=== PATIENT | female | born 1955 | race Two or more races ===

== ENCOUNTER 2020-06-18 08:37 | Outpatient (REF) | payer MEDICARE, MEDICAID, SELFPAY ==
[2020-06-18 09:48] LABS: MANUAL DIFF FLAG NO
[2020-06-18 09:49] LABS: Basophils Absolute Auto 0.1 X10*3/uL (0.0-0.2); Basophils Percent Auto 0.8 % (0-2); Eosinophils Absolute Auto 0.1 X10*3/uL (0.0-0.4); Hematocrit 36.2 % (37-47); Hemoglobin 12.4 g/dl (12.0-16.0); Imm Gran Abs Auto 0.02 X10*3/uL (0.00-0.03); Imm Gran Pct Auto 0.3 % (0.0-0.4); Lymphocytes Percent Auto 28.5 % (20-40); Mean Corpuscular HGB Conc 34.3 g/dl (31.0-35.0); Mean Corpuscular Hemoglobin 30.8 pg (27.0-33.0); Mean Corpuscular Volume 89.8 fL (80-98); Mean Platelet Volume 11.1 fL (9.4-12.3); Monocytes Absolute Auto 0.5 X10*3/uL (0.1-1.2); Monocytes Percent Auto 6.9 % (2-11); Neutrophils Absolute Auto 4.4 X10*3/uL (2.0-8.3); Neutrophils Percent Auto 62.5 % (45-73); Platelet Count 238 X10*3/uL (160-400); Red Blood Count 4.03 X10*6/uL (4.20-5.50); Red Cell Distribution Width 11.7 % (11.0-16.0); White Blood Count 7.1 X10*3/uL (4.8-10.8)
[2020-06-18 10:18] LABS: Alanine Aminotransferase 7 U/L (0-31); Albumin Level 4.3 g/dL (3.5-5.0); Alkaline Phosphatase 66 U/L (39-117); Anion Gap 11 (12-20); Aspartate Amino Transferase 14 U/L (5-31); Bilirubin Total 0.5 mg/dL (0.0-1.0); Blood Urea Nitrogen 15 mg/dL (9-16); Calcium 9.4 mg/dL (8.4-10.2); Carbon Dioxide 28 mmol/L (22-29); Chloride 104 mmol/L (96-108); Cholesterol 197 mg/dL; Estimated Glomerular Filt Rate > 60; Glucose Fasting 120 mg/dL (60-99); HDL Cholesterol 45 mg/dL; LDL Cholesterol Calculated 138 mg/dl; Sodium 139 mmol/L (135-145); Total Protein 7.2 g/dL (6.5-8.0); Triglycerides 72 mg/dL
[2020-06-18 10:40] LABS: Vitamin D 25-OH Total 29.2 ng/mL (>30)
== END 2020-06-18 08:38 | disposition home or self-care (01) ==
LOC: HO.LAB 08:37
PROVIDERS: Visit Provider Internal Medicine
DX: I10 Essential (primary) hypertension (principal); E78.00 Pure hypercholesterolemia, unspecified; G43.909 Migraine, unspecified, not intractable, without status migrainosus; E55.9 Vitamin D deficiency, unspecified
CPT/HCPCS: 36415; 80053; 80061; 82306; 85025

== ENCOUNTER 2021-05-17 09:27 | Outpatient (REF) | payer MEDICARE, MEDICAID, SELFPAY ==
[2021-05-17 10:02] LABS: MANUAL DIFF FLAG NO
[2021-05-17 10:12] LABS: Basophils Percent Auto 0.7 % (0-2); Eosinophils Absolute Auto 0.1 X10*3/uL (0.0-0.4); Eosinophils Percent Auto 1.8 % (0-4); Hematocrit 35.1 % (37-47); Hemoglobin 11.5 g/dl (12.0-16.0); Imm Gran Abs Auto 0.01 X10*3/uL (0.00-0.03); Imm Gran Pct Auto 0.2 % (0.0-0.4); Lymphocytes Absolute Auto 1.9 X10*3/uL (1.2-4.9); Lymphocytes Percent Auto 31.7 % (20-40); Mean Corpuscular HGB Conc 32.8 g/dl (31.0-35.0); Mean Corpuscular Hemoglobin 30.1 pg (27.0-33.0); Mean Corpuscular Volume 91.9 fL (80-98); Mean Platelet Volume 11.2 fL (9.4-12.3); Monocytes Absolute Auto 0.5 X10*3/uL (0.1-1.2); Monocytes Percent Auto 8.2 % (2-11); Neutrophils Absolute Auto 3.4 X10*3/uL (2.0-8.3); Neutrophils Percent Auto 57.4 % (45-73); Platelet Count 221 X10*3/uL (160-400); Red Blood Count 3.82 X10*6/uL (4.20-5.50); Red Cell Distribution Width 11.9 % (11.0-16.0)
[2021-05-17 10:32] LABS: Alanine Aminotransferase 9 U/L (0-31); Albumin Level 4.2 g/dL (3.5-5.0); Alkaline Phosphatase 60 U/L (39-117); Anion Gap 9 (12-20); Aspartate Amino Transferase 13 U/L (5-31); Bilirubin Total 0.6 mg/dL (0.0-1.0); Blood Urea Nitrogen 14 mg/dL (9-16); Calcium 9.6 mg/dL (8.4-10.2); Carbon Dioxide 29 mmol/L (22-29); Chloride 108 mmol/L (96-108); Cholesterol 180 mg/dL; Estimated Glomerular Filt Rate > 60; Glucose Fasting 105 mg/dL (60-99); HDL Cholesterol 42 mg/dL; LDL Cholesterol Calculated 126 mg/dl; Potassium 4.4 mmol/L (3.3-5.1); Sodium 142 mmol/L (135-145); Total Protein 6.8 g/dL (6.5-8.0); Triglycerides 60 mg/dL
[2021-05-17 10:51] LABS: TSH reflex Free T4 0.42 uIU/mL (0.32-4.0)
[2021-05-17 10:56] LABS: Folate 14.2 ng/mL (> or = 4.0); Vitamin B12 178 pg/mL (200-900)
[2021-05-26 16:50] LABS: Vitamin D 25-OH, D2 5 ng/mL; Vitamin D 25-OH, D3 14 ng/mL; Vitamin D 25-OH, Total 19 ng/mL (30-100)
== END 2021-05-17 09:28 | disposition home or self-care (01) ==
LOC: HO.LAB 09:27
PROVIDERS: PCP Internal Medicine; Visit Provider Internal Medicine
DX: R53.83 Other fatigue (principal); E55.9 Vitamin D deficiency, unspecified; D64.9 Anemia, unspecified; F41.9 Anxiety disorder, unspecified; E78.5 Hyperlipidemia, unspecified; I10 Essential (primary) hypertension
CPT/HCPCS: 36415; 80053; 80061; 82306; 82607; 82746; 84443; 85025

== ENCOUNTER 2021-06-04 16:07 | Emergency (ER) | payer MEDICARE, MEDICAID, SELFPAY ==
--- NOTE | 2021-06-04 17:20 | ED_ITS ---
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 Mode of arrival: ambulatory Limitations: no limitations History of Present Illness MD elicited complaint: other (feels tired and weak) Pertinent past history: other (dx with COVID on 05/29 not vaccinated) Onset (ago): day(s) (5) Consistency: intermittent Severity: mild Able to tolerate fluids by mouth: Yes Exacerbating factors: nothing Relieving factors: nothing Context: sick contacts Associated symptoms: other (weakness) Treatments prior to arrival: none Related Data Home Medications Medication Instructions Recorded Confirmed omeprazole 20 mg capsule,delayed mg PO 06/24/20 05/19/21 release Previous Rx's Medication Instructions Recorded famotidine 20 mg tablet 20 mg PO BID 30 Days #60 tab 07/27/20 lisinopril 40 mg tablet 40 mg PO DAILY #90 tab 03/24/21 aspirin 81 mg tablet,delayed 81 mg PO DAILY 30 Days #30 tab 04/25/21 release (Adult Low Dose Aspirin) montelukast 10 mg tablet 10 mg PO DAILY 90 Days #90 tab 04/25/21 escitalopram oxalate 5 mg tablet 5 mg PO DAILY 90 Days #90 tab 05/13/21 cyanocobalamin (vitamin B-12) 1,000 mcg PO DAILY 90 Days #90 tab 05/19/21 1,000 mcg tablet folic acid 1 mg tablet 1 mg PO DAILY 90 Days #90 tab 05/19/21 loratadine 10 mg tablet 10 mg PO DAILY PRN 90 Days #90 tab 05/19/21 ondansetron HCl 4 mg tablet 4 mg PO Q8H 30 Days #90 tab 05/19/21 tramadol 50 mg tablet 50 mg PO Q6H PRN 28 Days #112 tab 05/26/21 Allergies Allergy/AdvReac Type Severity Reaction Status Date / Time ibuprofen [IBUPROFEN] AdvReac Intermediate BURNING Verified 05/19/21 13:19 WITH URINATION Review of Systems Review of Systems: Constitutional : No Fever, No Chills, pos Fatigue,pos Malaise ENT/Mouth : No sore throat, No Rhinorrhea Eyes: No Eye Pain, No Swelling, No Redness Cardiovascular : No Chest Pain, No SOB Respiratory : No Cough, No Sputum, No Wheezing Gastrointestinal : No Nausea, No Vomiting, No Diarrhea Genitourinary : No Dysuria, No Urinary Frequency, No Hematuria, Musculoskeletal : No joint pain, No Myalgias, No Joint Swelling Skin : No Skin Lesions, No rash Neuro : pos Weakness, No Numbness, No Dizziness, No Headache PMFSH Past Medical History Attestation statement: The following information was validated with the patient. Medical History Anxiety B12 deficiency Essential hypertension GERD (gastroesophageal reflux disease) Knee osteoarthritis Nausea Seasonal allergic rhinitis due to pollen Surgical History History of section Family History Family History Father CVD (cardiovascular disease) Stroke Mother Hypertension Paternal Grandfather Medical history unknown Paternal Uncle Stroke Cancer Social History Social History Housing: Apartment Alcohol intake: never Patient Tobacco Use Status: Never used Tobacco e-Cigarette/Vaping Use: Never Used Second Hand Smoke Exposure: No Advance Directives: No Advance Directives Information Provided: No service: No Current occupational status: disabled Physical Exam Vital Signs: Appearance: Alert. Oriented X3. No acute distress. Eyes: Pupils equal, round and reactive to light. ENT: Pharynx normal. Neck: Normal inspection. Neck supple. CVS: Normal heart rate and rhythm. Pulses normal. Respiratory: No respiratory distress. Breath sounds normal. Abdomen: Soft and non-tender. Skin: Skin warm and dry. Normal skin color. Normal skin turgor. Extremities: No lower extremity edema. No calf ttp Neuro: Oriented X 3. No motor deficit. No sensory deficit. MDM - URI/Sore Throat MDM Narrative Medical decision making narrative: 66 yo female here because she just feels kind of tired after being dx with COVID on 05/29 she is not vaccinated, she is not hypoxic and denies breathing issues - at this time she has no real complaints other than feeling tired - will dc home with precautions Discharge Plan Discharge Clinical Impression: COVID-19 Patient Disposition: Home, Self-Care Instructions: COVID-19 (Coronavirus Disease 2019) (ED) Additional Instructions: return to ED for any worsening symptoms or concerns Prescriptions: No Action famotidine 20 mg tablet 20 mg PO BID 30 Days Qty: 60 RF: 11 lisinopril 40 mg tablet 40 mg PO DAILY Qty: 90 RF: 1 montelukast 10 mg tablet 10 mg PO DAILY 90 Days Qty: 90 RF: 3 aspirin [Adult Low Dose Aspirin] 81 mg tablet,delayed release (DR/EC) 81 mg PO DAILY 30 Days Qty: 30 RF: 11 escitalopram oxalate 5 mg tablet 5 mg PO DAILY 90 Days Qty: 90 RF: 0 tramadol 50 mg tablet 50 mg PO Q6H PRN (Reason: pain) 28 Days Qty: 112 RF: 0 omeprazole 20 mg capsule,delayed release(DR/EC) PO RF: 0 cyanocobalamin (vitamin B-12) 1,000 mcg tablet 1,000 mcg PO DAILY 90 Days Qty: 90 RF: 1 folic acid 1 mg tablet 1 mg PO DAILY 90 Days Qty: 90 RF: 2 ondansetron HCl 4 mg tablet 4 mg PO Q8H 30 Days Qty: 90 RF: 1 loratadine 10 mg tablet 10 mg PO DAILY PRN (Reason: allergy symptoms) 90 Days Qty: 90 RF: 1 Print Language: Thai
[2021-06-04 17:56] VITALS: BP 127/82; PULSE 91; RESP 16; TEMP 37.5; O2SAT 94; BMI 20.2
[2021-06-04] MEDS: Acetaminophen 325 MG TABLET 650 MG PO (18:09)
== END 2021-06-04 19:52 | disposition home or self-care (01) ==
PROVIDERS: Emergency Provider Emergency Medicine; PCP Internal Medicine
DX: U07.1 COVID-19 (principal); Z79.899 Other long term (current) drug therapy
CPT/HCPCS: 99283

== ENCOUNTER 2021-07-28 11:56 | Outpatient (REF) | payer MEDICARE, MEDICAID, SELFPAY ==
[2021-07-28 13:58] LABS: COVID-19 Test Negative (Negative)
== END 2021-07-28 11:57 | disposition home or self-care (01) ==
LOC: HO.LAB 11:56
PROVIDERS: PCP Internal Medicine; Visit Provider Internal Medicine
DX: Z20.822 Contact with and (suspected) exposure to COVID-19 (principal)
CPT/HCPCS: 36415; 87635; C9803

== ENCOUNTER 2021-09-09 22:50 | Emergency (ER) | payer MEDICARE, MEDICAID, SELFPAY ==
[2021-09-09 22:58] VITALS: BP 140/60; PULSE 72
[2021-09-09 23:16] VITALS: BP 153/83; PULSE 72; RESP 16; TEMP 36.5; O2SAT 97; BMI 20.2
--- NOTE | 2021-09-10 00:59 | ED_ITS ---
HPI - General Adult General Chief complaint: Neck Pain/Injury Stated complaint: NECK PAIN Time Seen by Provider: 09/10/21 00:57 Source: patient Mode of arrival: ambulatory Limitations: no limitations History of Present Illness HPI narrative: 66-year-old female came in for evaluation of right-sided neck pain. Patient woke up this morning with right-sided neck pain radiates down to the right shoulder, and right scapular area. Pain is constant since this morning, described as severe dull aching pain /10, pain is aggravated with turning neck right or left, pain is more stable if she is not moving her neck, declined any trauma or falling, no nausea, no vomiting, no fever, no chest pain, no difficulty breathing, no weakness, no numbness. Related Data Home Medications Medication Instructions Recorded Confirmed omeprazole 20 mg capsule,delayed mg PO 06/24/20 05/19/21 release Previous Rx's Medication Instructions Recorded famotidine 20 mg tablet 20 mg PO BID 30 Days #60 tab 07/27/20 aspirin 81 mg tablet,delayed 81 mg PO DAILY 30 Days #30 tab 04/25/21 release (Adult Low Dose Aspirin) montelukast 10 mg tablet 10 mg PO DAILY 90 Days #90 tab 04/25/21 cyanocobalamin (vitamin B-12) 1,000 mcg PO DAILY 90 Days #90 tab 05/19/21 1,000 mcg tablet folic acid 1 mg tablet 1 mg PO DAILY 90 Days #90 tab 05/19/21 loratadine 10 mg tablet 10 mg PO DAILY PRN 90 Days #90 tab 05/19/21 ondansetron HCl 4 mg tablet 4 mg PO Q8H 30 Days #90 tab 05/19/21 escitalopram oxalate 5 mg tablet 5 mg PO DAILY 90 Days #90 tab 08/08/21 lisinopril 40 mg tablet 40 mg PO DAILY #90 tab 08/25/21 tramadol 50 mg tablet 50 mg PO Q6H PRN 28 Days #112 tab 08/25/21 oxycodone 5 mg tablet 5 mg PO Q8H PRN #10 tab 09/10/21 Allergies Allergy/AdvReac Type Severity Reaction Status Date / Time ibuprofen [IBUPROFEN] AdvReac Intermediate BURNING Verified 09/09/21 23:19 WITH URINATION Review of Systems Review of Systems: All other systems are reviewed and are negative Constitutional: Reports as per HPI and Reports no additional constitutional complaints Eyes: Reports as per HPI and Reports no additional eye complaints Reports system reviewed and no additional complaints, except as documented Cardiovascular: Reports as per HPI and Reports no additional cardiovascular complaints Respiratory: Reports as per HPI and Reports no additional respiratory complaints Gastrointestinal: Reports as per HPI and Reports no additional gastrointestinal complaints Genitourinary: Reports no additional female genitourinary complaints Musculoskeletal: Reports no additional musculoskeletal complaints Skin/Breast: Reports system reviewed and no additional complaints, except as docu Psychiatric: Reports no additional psychiatric complaints Endocrine: Reports no additional endocrine complaints Hematologic/Lymphatic: Reports no additional hematologic/lymphatic complaints Allergic/Immunologic: Reports no additional allergic/immunologic complaints Reports system reviewed and no additional complaints, except as documented and Reports Abnormal speech present [facility] Past Medical History Medical History Anxiety B12 deficiency Essential hypertension GERD (gastroesophageal reflux disease) Knee osteoarthritis Nausea Seasonal allergic rhinitis due to pollen Surgical History History of section Family History Family History Father CVD (cardiovascular disease) Stroke Mother Hypertension Paternal Grandfather Medical history unknown Paternal Uncle Stroke Cancer Social History Social History Housing: Apartment Alcohol intake: never Patient Tobacco Use Status: Never used Tobacco e-Cigarette/Vaping Use: Never Used Second Hand Smoke Exposure: No Advance Directives: No service: No Current occupational status: disabled Physical Exam Vital Signs: Vital Signs: Last Vital Signs Temp 97.7 F 09/09/21 23:16 Pulse 72 09/09/21 23:16 Resp 16 09/09/21 23:16 BP 153/83 H 09/09/21 23:16 Pulse Ox 97 09/09/21 23:16 BMI result Body Mass Index 20.2 vital signs have been reviewed as appeared to be correct. Blood pressure normal. Heart rate normal. Respiration rate normal. Temperature normal. Oxygen saturation normal. Appearance: Alert. Oriented X3. No acute distress. Head: Normal external exam. Normocephalic. Atraumatic. No [place] signs noted. No raccoon eyes noted Eyes: PERRLA. EOMI. Conjunctiva and sclera normal. Eyelids normal. ENT: TM's Normal. Pharynx normal. Uvula midline. Moist mucous membranes. No trismus noted. No drooling noted. No muffled voice noted. Neck: Normal inspection. Neck supple. FROM. No adenopathy. Thyroid Normal. No meningeal signs. No neck mass noted. Foot pain with turning the head to the right or the left, increases shooting pain to the right scapular/right shoulder by turning the head to the right of the left. CVS: Normal heart rate and rhythm. Heart sound normal. No murmurs noted. Pulses normal throughout. Respiratory: No respiratory distress. Painless inspiration. Breath sounds normal. No wheezes/rales/rhonchi noted. Chest nontender. No accessory muscle usage noted or decreased air movement noted. Abdomen: Soft and nontender. Bowel sounds normal in all 4 quadrants. No distention noted. No organomegaly noted. No visible injury noted. Back: No CVA tenderness. Full range of motion noted. Skin: Skin warm and dry. Normal skin color. Normal skin turgor. No rashes/lesions/lacerations noted. Extremities: No lower extremity edema. Extremities exhibit normal range of motion. Extremities nontender. Neuro: Oriented X 3. Cranial nerve exam: II-XII are grossly intact No motor deficit. No sensory deficit. Reflexes normal. Course Course Course Narrative: Assessment and plan. 66-year-old female right-sided neck pain radiating down to the right shoulder, physical exam is consistent with right cervical radiculopathy with out neurological deficit. Patient felt better with oxycodone. Will discharge the patient with recommendation of rest, heating pad, oxycodone p.r.n. and follow up with PCP. Discharge Plan Discharge Clinical Impression: Cervical radiculopathy Patient Disposition: Home, Self-Care Instructions: Cervical Radiculopathy (ED) Additional Instructions: rest, heating pad. Prescriptions: New oxycodone 5 mg tablet 5 mg PO Q8H PRN (Reason: pain) Qty: 10 RF: 0 No Action famotidine 20 mg tablet 20 mg PO BID 30 Days Qty: 60 RF: 11 montelukast 10 mg tablet 10 mg PO DAILY 90 Days Qty: 90 RF: 3 aspirin [Adult Low Dose Aspirin] 81 mg tablet,delayed release (DR/EC) 81 mg PO DAILY 30 Days Qty: 30 RF: 11 escitalopram oxalate 5 mg tablet 5 mg PO DAILY 90 Days Qty: 90 RF: 0 lisinopril 40 mg tablet 40 mg PO DAILY Qty: 90 RF: 0 tramadol 50 mg tablet 50 mg PO Q6H PRN (Reason: pain) 28 Days Qty: 112 RF: 0 omeprazole 20 mg capsule,delayed release(DR/EC) PO RF: 0 cyanocobalamin (vitamin B-12) 1,000 mcg tablet 1,000 mcg PO DAILY 90 Days Qty: 90 RF: 1 folic acid 1 mg tablet 1 mg PO DAILY 90 Days Qty: 90 RF: 2 ondansetron HCl 4 mg tablet 4 mg PO Q8H 30 Days Qty: 90 RF: 1 loratadine 10 mg tablet 10 mg PO DAILY PRN (Reason: allergy symptoms) 90 Days Qty: 90 RF: 1 Referrals: Aubree Aguirre MD [Primary Care Provider] - 1 week
[2021-09-10] MEDS: oxyCODONE HCl Immed Release 5 MG TABLET PO (01:08)
== END 2021-09-10 01:20 | disposition home or self-care (01) ==
PROVIDERS: Emergency Provider Emergency Medicine; PCP Internal Medicine
DX: M54.12 Radiculopathy, cervical region (principal); M54.2 Cervicalgia; I10 Essential (primary) hypertension; Z79.82 Long term (current) use of aspirin; Z79.899 Other long term (current) drug therapy
CPT/HCPCS: 99283

== ENCOUNTER 2021-09-19 09:09 | Outpatient (REF) | payer MEDICARE, MEDICAID, SELFPAY ==
[2021-09-19 09:31] LABS: MANUAL DIFF FLAG NO
[2021-09-19 10:02] LABS: Basophils Percent Auto 0.7 % (0-2); Eosinophils Absolute Auto 0.1 X10*3/uL (0.0-0.4); Eosinophils Percent Auto 1.8 % (0-4); Hematocrit 35.6 % (37.0-47.0); Imm Gran Abs Auto 0.02 X10*3/uL (0.00-0.03); Imm Gran Pct Auto 0.4 % (0.0-0.4); Lymphocytes Percent Auto 35.8 % (20-40); Mean Corpuscular HGB Conc 33.7 g/dl (31.0-35.0); Mean Corpuscular Hemoglobin 31.3 pg (27.0-33.0); Mean Corpuscular Volume 92.7 fL (80.0-98.0); Mean Platelet Volume 10.3 fL (9.4-12.3); Monocytes Absolute Auto 0.4 X10*3/uL (0.1-1.2); Monocytes Percent Auto 6.7 % (2-11); Neutrophils Absolute Auto 3.1 x10*3/uL (2.0-8.3); Neutrophils Percent Auto 54.6 % (45-73); Platelet Count 267 X10*3/uL (160-400); Red Blood Count 3.84 X10*6/uL (4.20-5.50); Red Cell Distribution Width 11.6 % (11.0-16.0); White Blood Count 5.7 X10*3/uL (4.8-10.8)
[2021-09-19 10:33] LABS: Alanine Aminotransferase 10 U/L (0-31); Alkaline Phosphatase 55 U/L (39-117); Anion Gap 11 (12-20); Aspartate Amino Transferase 15 U/L (5-31); Bilirubin Total 0.3 mg/dL (0.0-1.0); Blood Urea Nitrogen 14 mg/dL (9-16); Calcium 9.9 mg/dL (8.4-10.2); Carbon Dioxide 30 mmol/L (22-29); Chloride 102 mmol/L (96-108); Estimated Glomerular Filt Rate > 60; Glucose Fasting 99 mg/dL (60-99); Iron 85 mcg/dL (30-160); Percent Iron Saturation 26 % (15-50); Potassium 4.2 mmol/L (3.3-5.1); Sodium 139 mmol/L (135-145); Total Iron Binding Capacity 324 mcg/dL (228-428); Unsaturated Iron Binding 239 ug/dL
[2021-09-19 11:03] LABS: Folate 15.6 ng/mL (> or = 4.0); Vitamin B12 476 pg/mL (200-900)
[2021-09-22 22:06] LABS: Intrinsic Factor Antibodies Negative (Negative)
[2021-09-24 23:51] LABS: Parietal Cell Antibody <=20.0 Unit (<=20.0)
== END 2021-09-19 09:10 | disposition home or self-care (01) ==
LOC: HO.LAB 09:09
PROVIDERS: PCP Internal Medicine; Visit Provider Internal Medicine
DX: D64.9 Anemia, unspecified (principal); I10 Essential (primary) hypertension; E53.8 Deficiency of other specified B group vitamins
CPT/HCPCS: 36415; 80053; 82607; 82746; 83516; 83540; 85025; 86340

== ENCOUNTER 2022-02-13 09:25 | Outpatient (REF) | payer OTHER, SELFPAY ==
[2022-02-13 11:09] LABS: Alanine Aminotransferase 7 U/L (0-31); Albumin Level 4.2 g/dL (3.5-5.0); Alkaline Phosphatase 66 U/L (39-117); Anion Gap 11 (12-20); Aspartate Amino Transferase 13 U/L (5-31); Bilirubin Total 0.5 mg/dL (0.0-1.0); Blood Urea Nitrogen 11 mg/dL (9-16); Calcium 9.4 mg/dL (8.4-10.2); Carbon Dioxide 28 mmol/L (22-29); Chloride 106 mmol/L (96-108); Cholesterol 180 mg/dL; Estimated Glomerular Filt Rate > 60; Glucose Fasting 95 mg/dL (60-99); HDL Cholesterol 44 mg/dL; LDL Cholesterol Calculated 126 mg/dl; Potassium 3.8 mmol/L (3.3-5.1); Sodium 141 mmol/L (135-145); Triglycerides 52 mg/dL
[2022-02-13 11:51] LABS: Folate > 20.0 ng/mL (> or = 4.0); Vitamin B12 471 pg/mL (200-900)
[2022-02-17 19:03] LABS: Vitamin D 25-OH, D2 4 ng/mL; Vitamin D 25-OH, D3 13 ng/mL; Vitamin D 25-OH, Total 17 ng/mL (30-100)
== END 2022-02-13 09:26 | disposition home or self-care (01) ==
LOC: HO.LAB 09:25
PROVIDERS: PCP Internal Medicine; Visit Provider Internal Medicine
DX: E55.9 Vitamin D deficiency, unspecified (principal); E53.8 Deficiency of other specified B group vitamins; I10 Essential (primary) hypertension
CPT/HCPCS: 36415; 80053; 80061; 82306; 82607; 82746

== ENCOUNTER 2022-09-25 19:55 | Emergency (ER) | payer MEDICARE, MEDICAID, SELFPAY ==
--- NOTE | ~2022-09-25 | XR_ITS ---
EXAMINATION: LEFT HAND AND WRIST: CLINICAL INFORMATION: Fall, pain. COMPARISON: None TECHNIQUE: 3 views left hand/wrist. FINDINGS: There is mild loss of PIP and DIP joint space left hand. The MCP joint space is preserved. There is an impacted fracture distal radius and minimally displaced ulnar styloid process fracture. There is mild dorsal wrist soft tissue swelling. XR/XR hand wrist LT IMPRESSION: 1. Impacted fracture distal radius and minimally displaced ulnar styloid process fracture. Mild dorsal wrist soft tissue swelling. 2. Mild degenerative changes PIP and DIP joints.
[2022-09-25 20:24] VITALS: BP 140/84; PULSE 64; RESP 16; TEMP 36.9; O2SAT 97; BMI 20.4
--- NOTE | 2022-09-25 20:25 | ED_ITS ---
HPI - Fall General Chief Complaint: Extremity Problem <Negin Lopez NP - Last Filed: 09/25/22 20:25> Stated Complaint: Fall L wrist pain <Negin Lopez NP - Last Filed: 09/25/22 20:25> Time Seen by Provider: 09/25/22 21:25 <Negin Lopez NP - Last Filed: 09/25/22 20:25> Source: patient <Carla Neil NP - Last Filed: 09/25/22 23:00> Mode of arrival: ambulatory <Carla Neil NP - Last Filed: 09/25/22 23:00> Limitations: no limitations <Carla Neil NP - Last Filed: 09/25/22 23:00> History of Present Illness HPI Narrative: 67-year-old female presents for left wrist pain and swelling after tripping and landing on outstretched arm. States that she was sweeping, tripped over the brush, and braced her fall with her left arm. She did not hit her head or lose consciousness, and does not report any prodromal events. The wrist is visibly deformed with swelling. <Carla Neil NP - Last Filed: 09/25/22 23:00> MD complaint: fall <Carla Neil NP - Last Filed: 09/25/22 23:00> Onset (ago): day(s) (1) <Carla Neil NP - Last Filed: 09/25/22 23:00> Fall from: standing <Carla Neil NP - Last Filed: 09/25/22 23:00> Fall witnessed: yes, by family <Carla Neil NP - Last Filed: 09/25/22 23:00> Place fall occurred: home <Carla Neil NP - Last Filed: 09/25/22 23:00> Loss of consciousness: none <Carla Neil NP - Last Filed: 09/25/22 23:00> Prolonged down time: no <Carla Neil NP - Last Filed: 09/25/22 23:00> Symptoms prior to fall: none <Carla Neil NP - Last Filed: 09/25/22 23:00> Context: tripped/slipped <Carla Neil NP - Last Filed: 09/25/22 23:00> Location of injury - extremities: left: forearm <Carla Neil NP - Last Filed: 09/25/22 23:00> Severity: moderate <Carla Neil NP - Last Filed: 09/25/22 23:00> Severity scale (1-10): 7 <Carla Neil NP - Last Filed: 09/25/22 23:00> Quality: aching <Carla Neil NP - Last Filed: 09/25/22 23:00> Associated symptoms (after fall): denies <Carla Neil NP - Last Filed: 09/25/22 23:00> Related Data Home Medications: Home Medications Medication Instructions Recorded Confirmed omeprazole 20 mg capsule,delayed mg PO 06/24/20 02/14/22 release Previous Rx's Medication Instructions Recorded famotidine 20 mg tablet 20 mg PO BID 30 days #60 tabs 07/27/20 cyanocobalamin (vitamin B-12) 1,000 mcg PO DAILY 90 days #90 tabs 12/01/21 1,000 mcg tablet loratadine 10 mg tablet 10 mg PO DAILY PRN allergy 12/22/21 symptoms 90 days #90 tabs cholecalciferol (vitamin D3) 50 50 mcg PO DAILY 90 days #90 caps 02/18/22 mcg (2,000 unit) capsule aspirin 81 mg tablet,delayed 81 mg PO DAILY 30 days #30 tabs 02/20/22 release (Adult Low Dose Aspirin) escitalopram oxalate 10 mg tablet 10 mg PO BEDTIME 90 days #90 tabs 02/27/22 folic acid 1 mg tablet 1 mg PO DAILY 90 days #90 tabs 02/27/22 Grab bar #1 ea 06/13/22 Shower Chair #1 ea 06/13/22 cane #1 ea 06/13/22 toilet seat elevator #1 ea 06/13/22 lisinopril 40 mg tablet 40 mg PO DAILY #90 tabs 07/01/22 tramadol 50 mg tablet 50 mg PO Q6H PRN pain 28 days #112 09/23/22 tabs oxycodone 5 mg tablet 5 mg PO Q6H PRN pain 3 days #12 09/25/22 tabs <Negin Lopez NP - Last Filed: 09/25/22 20:25> Allergies/Adverse Reactions: Allergies Allergy/AdvReac Type Severity Reaction Status Date / Time ibuprofen [IBUPROFEN] AdvReac Intermediate BURNING Verified 02/14/22 17:36 WITH URINATION <Negin Lopez NP - Last Filed: 09/25/22 20:25> Review of Systems Review of Systems: Constitutional: No Fever, No Chills Cardiovascular: No Chest Pain, No SOB Respiratory: No Cough, No Dyspnea Gastrointestinal: No Nausea, No Vomiting, No Diarrhea, No abdominal Pain Genitourinary: No Dysuria, No Hematuria Musculoskeletal: positive left wrist pain, No Myalgias, No Joint Swelling Skin: No Skin lacerations, No rash Neuro: No Weakness, No Numbness, No Paresthesias, No Loss of Consciousness, No Dizziness, No Headache <Carla Neil NP - Last Filed: 09/25/22 23:00> Yes all other systems are reviewed and are negative <Carla Neil NP - Last Filed: 09/25/22 23:00> [facility] Past Medical History Attestation statement: The following information was validated with the patient. <Carla Neil NP - Last Filed: 09/25/22 23:00> Source: old records reviewed <Carla Neil NP - Last Filed: 09/25/22 23:00> Medical History: Medical History Anxiety B12 deficiency Essential hypertension GERD (gastroesophageal reflux disease) Hair loss Knee osteoarthritis Nausea Neck pain Seasonal allergic rhinitis due to pollen <Negin Lopez NP - Last Filed: 09/25/22 20:25> Surgical History: Surgical History History of section <Negin Lopez NP - Last Filed: 09/25/22 20:25> Family History Family History: Family History Father CVD (cardiovascular disease) Stroke Mother Hypertension Paternal Grandfather Medical history unknown Paternal Uncle Stroke Cancer <Negin Lopez NP - Last Filed: 09/25/22 20:25> Social History Social History: Social History Housing: Apartment Alcohol intake: never Patient Tobacco Use Status: Never used Tobacco e-Cigarette/Vaping Use: Never Used Second Hand Smoke Exposure: No Advance Directives: No Advance Directives Information Provided: Yes service: No Current occupational status: disabled Cognitive needs: No Hearing needs: No Vision needs: No <Negin Lopez NP - Last Filed: 09/25/22 20:25> Physical Exam Vital Signs: Vital Signs: Last Vital Signs Temp 98.4 F 09/25/22 20:24 Pulse 64 09/25/22 20:24 Resp 16 09/25/22 20:24 BP 140/84 H 09/25/22 20:24 Pulse Ox 97 09/25/22 20:24 O2 Del Method 09/25/22 20:24 BMI result Body Mass Index 20.4 <Negin Lopez NP - Last Filed: 09/25/22 20:25> Vital Signs: Last Vital Signs Temp 98.4 F 09/25/22 20:24 Pulse 64 09/25/22 20:24 Resp 16 09/25/22 20:24 BP 140/84 H 09/25/22 20:24 Pulse Ox 97 09/25/22 20:24 O2 Del Method 09/25/22 20:24 BMI result Body Mass Index 20.4 <Carla Neil NP - Last Filed: 09/25/22 23:00> Appearance: Alert. Oriented X3. No acute distress. Eyes: Pupils equal, round and reactive to light. ENT: Pharynx normal. Neck: Normal inspection. Neck supple. CVS: Normal heart rate and rhythm. Pulses normal. Respiratory: No respiratory distress. Breath sounds normal. Skin: Skin warm and dry. Normal skin color. Normal skin turgor. Extremities: Left wrist swollen, visibly deformed. X-rays indicate fracture to radius and ulna. Full range of motion to the digits. Brisk capillary refill Eugene pulses. Neuro: No motor deficit. No sensory deficit. Cranial nerves 2-12 intact. <Carla Neil NP - Last Filed: 09/25/22 23:00> Course Course Course Narrative: This is a rapid medical exam. Defer additional HPI, ROS, PE Department provided. 67-year-old female here after mechanical fall with left hand and wrist pain. No head strike or loss of consciousness. Will check x-rays. Vitals stable <Negin Lopez NP - Last Filed: 09/25/22 20:25> This is a rapid medical exam. Defer additional HPI, ROS, PE Department provided. 67-year-old female here after mechanical fall with left hand and wrist pain. No head strike or loss of consciousness. Will check x-rays. Vitals stable 67-year-old female presents for left wrist pain and swelling after a trip and fall at home yesterday. States that she has been taking her tramadol however the pain is not managed. X-rays were completed while she was in the emergency department writing room which indicates a radial and ulna fracture of the left upper extremity. Range of motion exam of wrist deferred secondary to fracture. Has full range of motion to the elbow, shoulder, and all digits. No vertebral tenderness or step-offs. Patient does not report per dermal events. No head head injury or loss of consciousness. Sugar-tong splint applied, oxycodone given for pain management. Patient referred to Dr. Araujo for fracture clinic patient verbalized dangers of oxycodone use understands she should not be taking tramadol with her oxycodone. Patient verbalized understanding of and agrees plan of care discharge home. Verbalized understanding of signs and symptoms indicating need for emergent intervention <Carla Neil NP - Last Filed: 09/25/22 23:00> Medications Administered Discontinued Medications Generic Name Dose Route Start Last Admin Trade Name Freq PRN Reason Stop Dose Admin Oxycodone HCl 5 mg 09/25/22 21:49 09/25/22 22:32 Oxycodone Hcl Immed Release 5 Mg Tablet PO 09/25/22 21:50 5 mg ONCE ONE Administration <Negin Lopez NP - Last Filed: 09/25/22 20:25> Medications Administered Discontinued Medications Generic Name Dose Route Start Last Admin Trade Name Freq PRN Reason Stop Dose Admin Oxycodone HCl 5 mg 09/25/22 21:49 01/30/23 22:32 Oxycodone Hcl Immed Release 5 Mg Tablet PO 09/25/22 21:50 5 mg ONCE ONE Administration <JOCELYN Rosa Last Filed: 09/25/22 23:00> Medical Decision Making Differential Diagnosis Differential Diagnoses: The differential diagnosis associated with the presentation includes <Carla Neil NP - Last Filed: 09/25/22 23:00> Fracture, dislocation <Carla Neil NP - Last Filed: 09/25/22 23:00> Independent Interpretation I performed an independent interpretation of an: Plain X-Ray <Carla Neil NP - Last Filed: 09/25/22 23:00> Radiology Impression Discussion of test interpretation with radiology: I have reviewed the radiologist's reading. <Carla Neil NP - Last Filed: 09/25/22 23:00> Radiologist Impression: EXAMINATION: LEFT HAND AND WRIST: CLINICAL INFORMATION: Fall, pain.? COMPARISON: None? TECHNIQUE: 3 views left hand/wrist.? FINDINGS: There is mild loss of PIP and DIP joint space left hand. The MCP joint space is preserved. There is an impacted fracture distal radius and minimally displaced ulnar styloid process fracture. There is mild dorsal wrist soft tissue swelling. XR/XR hand wrist LT IMPRESSION: 1.? Impacted fracture distal radius and minimally displaced ulnar styloid process fracture. Mild dorsal wrist soft tissue swelling. ? 2.? Mild degenerative changes PIP and DIP joints. <Carla Neil NP - Last Filed: 09/25/22 23:00> Independent Historian Clinical information obtained from an independent historian. History obtained from or confirmed by: Spouse <Carla Neil NP - Last Filed: 09/25/22 23:00> External Record Review External record reviewed: Outpatient record <JOCELYN Rosa Last Filed: 09/25/22 23:00> Prescription Management I considered prescription management with: Pain Medication <Carla Neil NP - Last Filed: 09/25/22 23:00> Discharge Plan Discharge Clinical Impression: Fracture of radius and ulna <JOCELYN Garcia Last Filed: 09/25/22 20:25> Patient Disposition: Home, Self-Care <JOCELYN Garcia Last Filed: 09/25/22 20:25> Instructions: Arm Fracture in Adults (ED) <Negin Lopez NP - Last Filed: 09/25/22 20:25> Additional Instructions: You were evaluated for injury sustained from a fall. X-rays indicate an impacted fracture of the distal radius and ulnar styloid process fracture. Please keep the splint in place. I have referred you to Orthopedics. Please call Dr. Araujo office for an appointment. I prescribed oxycodone, this medication is a narcotic and has high risk addiction and abuse. Do not drive or operate machinery while taking this medication. This medication can delay reaction time, increased risk for falls, cause drowsiness and constipation. Use MiraLax and Colace daily to help soften stools. Drink plenty of fluids. Thank you for choosing this emergency department for evaluation. Please follow-up with primary care physician as needed. Return to the emergency department for any new, concerning, or worsening symptoms. <Negin Lopez NP - Last Filed: 09/25/22 20:25> Prescriptions: New oxycodone 5 mg tablet 5 mg PO Q6H PRN (Reason: pain) 3 Days Qty: 12 0RF Rx Instructions: Partial Fill upon patient request. No Action famotidine 20 mg tablet 20 mg PO BID 30 Days Qty: 60 11RF cyanocobalamin (vitamin B-12) 1,000 mcg tablet 1,000 mcg PO DAILY 90 Days Qty: 90 1RF loratadine 10 mg tablet 10 mg PO DAILY PRN (Reason: allergy symptoms) 90 Days Qty: 90 1RF cholecalciferol (vitamin D3) 50 mcg (2,000 unit) capsule 50 mcg PO DAILY 90 Days Qty: 90 1RF aspirin [Adult Low Dose Aspirin] 81 mg tablet,delayed release (DR/EC) 81 mg PO DAILY 30 Days Qty: 30 11RF folic acid 1 mg tablet 1 mg PO DAILY 90 Days Qty: 90 2RF escitalopram oxalate 10 mg tablet 10 mg PO BEDTIME 90 Days Qty: 90 1RF (DME) Grab bar Misc See Rx Instructions .Route Qty: 1 0RF Rx Instructions: As directed Ht: 5'4 , Wt: 118 lbs (DME) Shower Chair Misc See Rx Instructions .Route Qty: 1 0RF Rx Instructions: As directed, Ht: 5'4 , Wt: 118 lbs (DME) toilet seat elevator See Rx Instructions .Route .MEDSUPPLY Qty: 1 0RF Rx Instructions: As directed, Ht: 5'4 , Wt: 118 lbs. (DME) cane Device See Rx Instructions .Route Qty: 1 0RF Rx Instructions: As directed, Ht: 5'4 , Wt: 118 lbs lisinopril 40 mg tablet 40 mg PO DAILY Qty: 90 0RF tramadol 50 mg tablet 50 mg PO Q6H PRN (Reason: pain) 28 Days Qty: 112 0RF omeprazole 20 mg capsule,delayed release(DR/EC) PO <Negin Lopez NP - Last Filed: 09/25/22 20:25> Referrals: Keegan Araujo MD [Physician] - 3 days (radial fracture ) Aubree Aguirre MD [Primary Care Provider] - 1 week (Distal radial fracture and ulnar fracture) <Negin Lopez NP - Last Filed: 09/25/22 20:25>
[2022-09-25] MEDS: oxyCODONE HCl Immed Release 5 MG TABLET PO (22:32)
== END 2022-09-25 23:01 | disposition home or self-care (01) ==
PROVIDERS: Emergency Provider Internal Medicine; PCP Internal Medicine
DX: S52.92XA Unspecified fracture of left forearm, initial encounter for closed fracture (principal); S52.202A Unspecified fracture of shaft of left ulna, initial encounter for closed fracture; M79.642 Pain in left hand; M25.532 Pain in left wrist; W01.0XXA Fall on same level from slipping, tripping and stumbling without subsequent striking against object, initial encounter; Y93.9 Activity, unspecified; Y92.9 Unspecified place or not applicable; Y99.9 Unspecified external cause status; Z79.899 Other long term (current) drug therapy
CPT/HCPCS: 29105; 73110; 73130; 99283; 99284

== ENCOUNTER 2022-09-29 05:45 | Outpatient (REF) | payer MEDICARE, MEDICAID, SELFPAY ==
--- NOTE | ~2022-09-29 | XR_ITS ---
EXAMINATION: XR WRIST, LEFT CLINICAL INFORMATION: M25.532 - Pain in left wrist COMPARISON: 09/25/2022 TECHNIQUE: PA, lateral, and oblique views of the left wrist. FINDINGS: Bones are osteopenic. Again seen is a transverse distal radial fracture with slight dorsal tilt of the distal radial articular surface (10 degrees) is not appreciably changed as compared to prior. Soft tissues are swollen. Minimally distracted transverse fracture through the base of the ulnar styloid is unchanged. There is mild osteoarthritis in the triscaphe and first CMC joints. No new fractures are identified. XR/XR wrist LT min 3V IMPRESSION: 1. Unchanged alignment of the distal radial and ulnar fractures. No new fractures are identified. 2. 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
== END 2022-09-29 05:46 | disposition home or self-care (01) ==
LOC: HO.HOSX 05:45
PROVIDERS: Visit Provider Physician Assistant
DX: S52.502A Unspecified fracture of the lower end of left radius, initial encounter for closed fracture (principal)
CPT/HCPCS: 29085; 73110; 99202

== ENCOUNTER → 2022-10-19 12:17 | Outpatient (BNVA) | payer MEDICARE, MEDICAID, SELFPAY | PROVIDERS: PCP Internal Medicine; Visit Provider Physician Assistant | DX: S52.502D Unspecified fracture of the lower end of left radius, subsequent encounter for closed fracture with routine healing (principal) | CPT/HCPCS: 29085; 99212 ==

== ENCOUNTER 2022-11-10 11:31 | Outpatient (REF) | payer MEDICARE, MEDICAID, SELFPAY ==
--- NOTE | ~2022-11-10 | XR_ITS ---
EXAMINATION: XR WRIST, LEFT CLINICAL INFORMATION: Pain COMPARISON: 09/29/2022 TECHNIQUE: PA, lateral, and oblique views of the left wrist. FINDINGS: Distal radial impacted fracture with mild volar angulation of the distal fracture fragment, there is mild increased sclerosis of the fracture line. Unchanged ulnar styloid avulsion fracture. Soft tissue swelling about the wrist. XR/XR wrist LT min 3V IMPRESSION: Healing distal radial fracture with mild volar angulation of the distal fracture fragment. Unchanged ulnar styloid avulsion fracture.
== END 2022-11-10 11:32 | disposition home or self-care (01) ==
LOC: HO.HOSX 11:31
PROVIDERS: Visit Provider Physician Assistant
DX: S52.502D Unspecified fracture of the lower end of left radius, subsequent encounter for closed fracture with routine healing (principal)
CPT/HCPCS: 73110

== ENCOUNTER 2022-12-04 11:24 | Outpatient (REF) | payer MEDICARE, MEDICAID, SELFPAY ==
--- NOTE | ~2022-12-04 | XR_ITS ---
EXAMINATION: XR WRIST, LEFT CLINICAL INFORMATION: Pain COMPARISON: 11/10/2022 TECHNIQUE: PA, lateral, and oblique views of the left wrist. FINDINGS: Distal radial impacted fracture with surrounding sclerosis of the fracture line, not significant changed from prior study. Minimally displaced ulnar styloid fracture again noted with lucent fracture line visualized. Soft tissue swelling about the wrist. XR/XR wrist LT min 3V IMPRESSION: No significant change in alignment of the distal radial and ulnar styloid fractures. Soft tissue swelling about the wrist.
== END 2022-12-04 11:25 | disposition home or self-care (01) ==
LOC: HO.HOSX 11:24
PROVIDERS: Visit Provider Physician Assistant
DX: S52.502D Unspecified fracture of the lower end of left radius, subsequent encounter for closed fracture with routine healing (principal)
CPT/HCPCS: 73110

== ENCOUNTER 2023-05-23 13:07 | Outpatient (AMB) | payer MEDICARE, MEDICAID, SELFPAY ==
[2023-05-23 13:09] VITALS: BP 136/82; PULSE 72; O2SAT 100; BMI 20.6
--- NOTE | 2023-05-23 13:09 | MHC.PC.OV ---
Vital Signs 05/23/23 13:09 Height 5 ft 4 in Weight 120 lb BMI 20.6 BP 136/82 Blood Pressure Location Lt brachial Position Sitting Pulse 72 Pulse Source Pulse Oximeter Temp Source Skin Pulse Oximetry (%) 100 Oxygen Delivery Method Room Air Intake Visit Reasons: Physical Exam Intake Note: Patient is here today for a physical. 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 Allergies ibuprofen [IBUPROFEN] Adverse Reaction (Intermediate, Verified 05/23/23 13:55) BURNING WITH URINATION Medication List - Last Reconciled 05/23/23 by LYNNE Herrera aspirin (Adult Low Dose Aspirin) 81 mg PO DAILY 30 days cane As directed, Ht: 5'4 , Wt: 118 lbs cholecalciferol (vitamin D3) 50 mcg PO DAILY 90 days cyanocobalamin (vitamin B-12) 1,000 mcg PO DAILY 90 days escitalopram oxalate 10 mg PO BEDTIME 90 days folic acid 1 mg PO DAILY 90 days Grab bar As directed Ht: 5'4 , Wt: 118 lbs lisinopril 40 mg PO DAILY loratadine 10 mg PO DAILY PRN 90 days omeprazole mg PO Shower Chair As directed, Ht: 5'4 , Wt: 118 lbs [toilet seat elevator As directed, Ht: 5'4 , Wt: 118 lbs.] tramadol 50 mg PO Q6H PRN 28 days Tobacco use date assessed: 05/23/23 Fall risk assessment: 1 Fall in past year Last assessed Fall Risk: 05/23/23 Dental Screening Dental Screen Date: 05/23/23 Did you have a dental visit in the last 12 months?: No Did you have a dental problem in the last 6 months where you did not have access to dental care?: No HPI Physical Exam HPI Details Patient is a 68-year-old female who presents today for physical exam. Patient of Dr. Jackson. Medical history significant for hypertension, GERD, anxiety, knee osteoarthritis, tremor-patient requesting referral to Neurology, depression, lumbar degenerative disc disease-takes tramadol p.r.n. with minimal improvement, left wrist pain-patient reports left wrist fracture 08/2022-still continues with pain. Today we discussed patient's need for pneumonia and tetanus vaccines, patient has declined. We also discussed patient's need for colon cancer screening, mammogram, and bone density screening. Patient is due for eye exam. Patient ambulates with a cane. 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 Patient denies shortness of breath or chest pain. Patient is a Kyrgyz-speaking and her daughter Dot was helping with interpretation. [facility] Medical History Neck pain Hair loss Seasonal allergic rhinitis due to pollen Nausea B12 deficiency Anxiety Knee osteoarthritis GERD (gastroesophageal reflux disease) Essential hypertension Surgical History History of section Family History Father CVD (cardiovascular disease) Stroke Mother Hypertension Paternal Grandfather Medical history unknown Paternal Uncle Stroke Cancer Social History Housing: Apartment Alcohol intake: never Patient Tobacco Use Status: Never used Tobacco e-Cigarette/Vaping Use: Never Used Second Hand Smoke Exposure: No service: No Current occupational status: disabled Cognitive needs: Yes Hearing needs: No Vision needs: No Questionnaire PHQ-9 Over the last 2 weeks, how often have you been bothered by any of the following problems? 1. Little interest or pleasure in doing things: not at all 2. Feeling down, depressed, or hopeless: not at all 3. Trouble falling or staying asleep, or sleeping too much: not at all 4. Feeling tired or having little energy: not at all 5. Poor appetite or overeating: not at all 6. Feeling bad about yourself - or that you are a failure or have let yourself or your family down: not at all 7. Trouble concentrating on things, such as reading the newspaper or watching television: not at all 8. Moving or speaking so slowly that other people could have noticed. Or the opposite - being so fidgety or restless that you have been moving around a lot more than usual: not at all 9. Thoughts that you would be better off or of hurting yourself in some way: not at all Total score: 0 Depression Screening Interpretation: Negative 99495 - PHQ-9 Billing: Yes Source: Developed by Drs. Dell LDomenica Borges, Edin Dietrich and colleagues, with an educational ron from [email or web address]. Thrive Questionnaire Date Thrive assessed: 05/23/23 I am a: Patient What is your living situation today?: I have a steady place to live Within the past 12 months, did the food you bought not last and you didn't have the money to get more?: Sometimes True Within the past 12 months, did you worry whether your food would run out before you got money to buy more?: Sometimes True Do you have trouble paying for medicines?: No Do you have trouble getting transportation to medical appointments?: No Do you have trouble paying your heating and electricity bill?: No Do you have trouble taking care of your child, family member or friend?: No Do you have trouble with day-to-day activities such as bathing, preparing meals, shopping, managing finances, etc.?: No Are you currently unemployed and looking for a job?: No Are you interested in more education?: No Currently or been in a relationship where the following occur: no concerns reported AUDIT C Alcohol Use Questionnaire (AUDIT-C) 1. How often do you have a drink containing alcohol?: Never 3. How often do you have six or more drinks on one occasion?: Never Total Score: 0 Score Reviewed/Action Taken: No DEANGELO-7 AMB Questionnaire DEANGELO-7 Date DEANGELO - 7 assessed: 05/23/23 Feeling nervous, anxious, or on edge: 1 = Several days Not being able to stop or control worryin = Several days Worrying too much about different things: 0 = Not at all Trouble relaxin = Not at all Being so restless that it is hard to sit still: 0 = Not at all Becoming easily annoyed or irritable: 0 = Not at all Feeling afraid as if something awful might happen: 0 = Not at all Total DEANGELO-7 score (0-4 normal; 5-9 mild; 10-14 moderate; 15-21 severe): 2 Source: Developed by Drs. Dell Traiq, Edin Cano and colleagues, with an educational ron from [email or web address]. DEANGELO-7 Assessment Billing DEANGELO-7 Assessment Tool: DEANGELO-7 Assessment 14287 Review of Systems Const Denies body aches, Denies chills, Denies fever(s) and Denies headache(s) Eyes Denies change in vision ENT Denies dizziness, Denies otalgia, Denies headache(s), Denies nasal discharge, Denies sinus pain and Denies sore throat Card Denies chest pain, Denies edema, Denies lightheadedness and Denies dyspnea Resp Denies cough, Denies dyspnea and Denies wheezing GI Denies constipation, Denies diarrhea, Denies nausea and Denies vomiting Denies dysuria Musc Reports back pain, Denies myalgias, Reports arthralgias and Denies joint swelling Skin/Breast Denies rash Neuro Denies dizziness and Denies headache(s) Aller/Immun Denies wheezing Physical exam (Primary Care) Vital Signs: Last Vital Signs Pulse 72 05/23/23 13:09 BP 136/82 05/23/23 13:09 Pulse Ox 100 05/23/23 13:09 Oxygen Delivery Method Room Air 05/23/23 13:09 BMI result Body Mass Index 20.6 Tobacco/Smoking Status: Tobacco use Status Tobacco use date assessed 05/23/23 05/23/23 13:11 Patient Tobacco Use Status Never used Tobacco 05/23/23 13:11 e-Cigarette/Vaping Use Never Used 05/23/23 13:11 PHQ-9: PHQ-9 Score PHQ-9: Total score 0 05/23/23 13:28 Depression Screening Interpretation: Negative Thrive Assessment: Date of Thrive Assessment Date Thrive assessed 05/23/23 05/23/23 13:11 Currently or been in a relationship where the following occur: no concerns reported Const Other: Ambulates with a cane General: cooperative and no acute distress Orientation/consciousness: patient oriented x3 HENMT Head: Yes normocephalic and Yes atraumatic Ears: TM's normal bilaterally Face and sinus: Yes sinuses nontender Mouth: oropharynx normal and moist mucous membranes Throat: Yes posterior oropharynx normal Eyes General: appearance normal, both eyes and all related structures Pupils: Equal, round and reactive pupils present EOM: EOMs intact bilaterally Neck Neck: Yes normal visual inspection, Yes full ROM and Yes no lymphadenopathy Thyroid: Thyroid normal Resp Effort & Inspection: normal respiratory effort and able to speak in complete sentences Auscultation: clear to auscultation bilaterally, no crackles, no rales, no rhonchi and no wheezes Cardio Rate: regular rate Rhythm: regular rhythm Heart sounds: S1 normal heart sound present, S2 normal heart sound present and no murmurs GI Palpation (GI): Soft to palpation, not firm, nontender, no guarding, not rigid and no hepatosplenomegaly Auscultation: normal bowel sounds General: No CVA tenderness Back/Spine/Pelvis Back: No CVA tenderness Skin General skin exam: no rashes or lesions noted Neuro General: patient oriented x3 Cranial nerves: Yes Equal, round and reactive pupils present Gait exam (Neuro): Normal gait present Motor exam (neuro): 5/5 motor strength present throughout Extrem Other: Left wrist normal to inspection, lateral aspect mild tenderness noted, full range of motion Left knee normal to inspection, anterior and posterior knee tender to palpation, mild pain with range of motion General: Yes full ROM and No edema Assessment and Plan Assessment & Plan (1) Left knee pain: Code(s): M25.562 - Pain in left knee Plan: PT referral Continue tramadol every 6 hours p.r.n. Start arthritis Tylenol every 8 hours p.r.n. Follow-up if no improvement after physical therapy (2) Left wrist pain: Code(s): M25.532 - Pain in left wrist Plan: OT referral Continue tramadol every 6 hours p.r.n. Start arthritis Tylenol every 8 hours p.r.n. Follow-up if no improvement after OT therapy (3) Eye exam, routine: Code(s): Z01.00 - Encounter for examination of eyes and vision without abnormal findings (4) Screening for colon cancer: Code(s): Z12.11 - Encounter for screening for malignant neoplasm of colon (5) Post-menopausal: Code(s): Z78.0 - Asymptomatic menopausal state (6) Mild recurrent major depression: Code(s): F33.0 - Major depressive disorder, recurrent, mild Plan: Stable with escitalopram (7) Lumbar degenerative disc disease: Code(s): M51.36 - Other intervertebral disc degeneration, lumbar region Plan: Continue tramadol every 6 hours p.r.n. - educated about possible adverse reactions Start arthritis Tylenol every 8 hours p.r.n. (8) Tremors of nervous system: Code(s): R25.1 - Tremor, unspecified Plan: Neurology referral (9) Physical exam: Code(s): Z00.00 - Encounter for general adult medical examination without abnormal findings (10) GERD (gastroesophageal reflux disease): Code(s): K21.9 - Gastro-esophageal reflux disease without esophagitis Qualifiers: Esophagitis presence: esophagitis presence not specified Qualified Code(s): K21.9 - Gastro-esophageal reflux disease without esophagitis Plan: Stable with omeprazole Avoid GERD trigger foods Do not lay down 2-3 hours after evening meal (11) Essential hypertension: Code(s): I10 - Essential (primary) hypertension Plan: Goal BP equal or less than 140/90 Continue lisinopril Low-sodium diet (12) Screening for breast cancer: Code(s): Z12.39 - Encounter for other screening for malignant neoplasm of breast Plan Follow-up with PCP in 4 months or sooner as needed Orders: Orders XR DEXA axial skeleton Today Z78.0 - Asymptomatic menopausal state MM tomosynthesis screening BI Today Z12.31 - Encounter for screening mammogram for malignant neoplasm of breast Vitamin D 25-OH Total Today Z00.00 - Encounter for general adult medical examination without abnormal findings Vitamin B12 and Folate Today Z00.00 - Encounter for general adult medical examination without abnormal findings TSH reflex Free T4 Today Z00.00 - Encounter for general adult medical examination without abnormal findings Lipid Panel Today I10 - Essential (primary) hypertension Comprehensive [place]. Panel Fast Today I10 - Essential (primary) hypertension Complete Blood Count Auto Diff Today I10 - Essential (primary) hypertension OT Evaluation and Treatment Today M25.532 - Pain in left wrist PT Evaluation and Treatment Today M25.562 - Pain in left knee Referrals Gastroenterology Referral Z12.11 - Encounter for screening for malignant neoplasm of colon Ophthalmology Referral Z01.00 - Encounter for examination of eyes and vision without abnormal findings Neurology Referral R25.1 - Tremor, unspecified Medications: New acetaminophen ER (Arthritis Pain Relief (acetaminophen) ER) 650 mg PO Q8H PRN 60 tabs 0RF pain M25.532 - Pain in left wrist, M25.562 - Pain in left knee Refilled loratadine 10 mg PO DAILY 90 days PRN 90 tabs 1RF allergy symptoms escitalopram oxalate 10 mg PO BEDTIME 90 days 90 tabs 1RF tramadol 50 mg PO Q6H 28 days PRN 112 tabs 0RF pain Coding Level of Care Code Est Pt Prev Care >65y(73968) Diagnoses Left knee pain M25.562 Left wrist pain M25.532 Eye exam, routine Z01.00 Screening for colon cancer Z12.11 Post-menopausal Z78.0 Mild recurrent major depression F33.0 Lumbar degenerative disc disease M51.36 Tremors of nervous system R25.1 Physical exam Z00.00 Gastroesophageal reflux disease, unspecified whether esophagitis present K21.9 Esophagitis presence: esophagitis presence not specified Essential hypertension I10 Screening for breast cancer Z12.39 Additional Codes DEANGELO-7 Assessment Billing - DEANGELO-7 Assessment Tool: DEANGELO-7 Assessment 26897 ([id number])
== END 2023-05-23 14:44 | disposition home or self-care (01) ==
PROVIDERS: PCP Internal Medicine; Visit Provider Nurse Practitioner Family
DX: Z00.00 Encounter for general adult medical examination without abnormal findings (principal); F33.0 Major depressive disorder, recurrent, mild; M25.562 Pain in left knee; M25.532 Pain in left wrist; Z01.00 Encounter for examination of eyes and vision without abnormal findings; Z78.0 Asymptomatic menopausal state; M51.36 Other intervertebral disc degeneration, lumbar region; R25.1 Tremor, unspecified; K21.9 Gastro-esophageal reflux disease without esophagitis; I10 Essential (primary) hypertension
CPT/HCPCS: 99397

== ENCOUNTER 2023-09-20 09:09 | Outpatient (REF) | payer MEDICARE, MEDICAID, SELFPAY ==
[2023-09-20 10:55] LABS: MANUAL DIFF FLAG NO
[2023-09-20 10:56] LABS: Basophils Absolute Auto 0.1 X10*3/uL (0.0-0.2); Basophils Percent Auto 0.8 % (0-2); Eosinophils Absolute Auto 0.1 X10*3/uL (0.0-0.4); Eosinophils Percent Auto 1.4 % (0-4); Hematocrit 37.5 % (37.0-47.0); Hemoglobin 12.5 g/dl (12.0-16.0); Imm Gran Abs Auto 0.02 X10*3/uL (0.00-0.03); Imm Gran Pct Auto 0.3 % (0.0-0.4); Lymphocytes Absolute Auto 1.9 X10*3/uL (1.2-4.9); Lymphocytes Percent Auto 31.9 % (20-40); Mean Corpuscular HGB Conc 33.3 g/dl (31.0-35.0); Mean Corpuscular Hemoglobin 30.3 pg (27.0-33.0); Mean Corpuscular Volume 90.8 fL (80.0-98.0); Mean Platelet Volume 11.5 fL (9.4-12.3); Monocytes Absolute Auto 0.4 X10*3/uL (0.1-1.2); Monocytes Percent Auto 7.5 % (2-11); Neutrophils Absolute Auto 3.4 x10*3/uL (2.0-8.3); Neutrophils Percent Auto 58.1 % (45-73); Platelet Count 223 X10*3/uL (160-400); Red Blood Count 4.13 X10*6/uL (4.20-5.50); Red Cell Distribution Width 11.8 % (11.0-16.0); White Blood Count 5.9 X10*3/uL (4.8-10.8)
[2023-09-20 12:13] LABS: Alanine Aminotransferase 8 U/L (0-31); Albumin Level 4.2 g/dL (3.5-5.0); Alkaline Phosphatase 67 U/L (39-117); Anion Gap 13 (12-20); Aspartate Amino Transferase 14 U/L (5-31); Bilirubin Total 0.5 mg/dL (0.0-1.0); Blood Urea Nitrogen 15 mg/dL (9-16); Calcium 10.1 mg/dL (8.4-10.2); Carbon Dioxide 28 mmol/L (22-29); Chloride 104 mmol/L (96-108); Cholesterol 196 mg/dL (<200); Estimated Glomerular Filt Rate > 60; Glucose Fasting 101 mg/dL (60-99); HDL Cholesterol 43 mg/dL (>40); LDL Cholesterol Calculated 137 mg/dL (<100); Sodium 141 mmol/L (135-145); Total Protein 7.4 g/dL (6.5-8.0); Triglycerides 84 mg/dL (<150)
[2023-09-20 12:20] LABS: TSH reflex Free T4 0.57 uIU/mL (0.32-4.0); Vitamin D 25-OH Total 41.8 ng/mL (>30)
[2023-09-20 12:36] LABS: Folate 8.6 ng/mL (> or = 4.0); Vitamin B12 245 pg/mL (200-900)
== END 2023-09-20 09:10 | disposition home or self-care (01) ==
LOC: HO.LAB 09:09
PROVIDERS: PCP Internal Medicine; Visit Provider Nurse Practitioner Family
DX: Z00.00 Encounter for general adult medical examination without abnormal findings (principal); I10 Essential (primary) hypertension
CPT/HCPCS: 36415; 80053; 80061; 82306; 82607; 82746; 84443; 85025

== ENCOUNTER 2023-09-26 13:57 | Outpatient (AMB) | payer MEDICARE, MEDICAID, SELFPAY ==
[2023-09-26 14:01] VITALS: BP 134/80; BMI 21.5
--- NOTE | 2023-09-26 14:05 | A.OFFPC_ITS ---
Vital Signs 09/26/23 14:01 Height 5 ft 4 in Weight 125 lb BMI 21.5 BP 134/80 Blood Pressure Location Lt brachial Position Sitting Intake Visit Reasons: Hypertension Intake Note: Patient here for a follow up HTN, c/o left wrist pain Hand Outside Cutter Required: No Accompanied by: Spouse Allergies ibuprofen [IBUPROFEN] Adverse Reaction (Intermediate, Verified 09/26/23 14:20) BURNING WITH URINATION Medication List - Last Reconciled 09/26/23 by Aubree Pierson MD aspirin (Adult Low Dose Aspirin) 81 mg PO DAILY 30 days cane As directed, Ht: 5'4 , Wt: 118 lbs cholecalciferol (vitamin D3) 50 mcg PO DAILY 90 days cyanocobalamin (vitamin B-12) 1,000 mcg PO DAILY 90 days Grab bar As directed Ht: 5'4 , Wt: 118 lbs lisinopril 40 mg PO DAILY loratadine 10 mg PO DAILY PRN 90 days omeprazole mg PO Shower Chair As directed, Ht: 5'4 , Wt: 118 lbs [toilet seat elevator As directed, Ht: 5'4 , Wt: 118 lbs.] tramadol 50 mg PO Q6H PRN 28 days Tobacco use date assessed: 09/26/23 Fall risk assessment: 1 Fall in past year Last assessed Fall Risk: 09/26/23 Dental Screening Dental Screen Date: 09/26/23 Did you have a dental visit in the last 12 months?: No Did you have a dental problem in the last 6 months where you did not have access to dental care?: No Was dental information given to patient?: Patient has dentist HPI HPI Comments History of Present Illness Details This is a 68-year-old female with hypertension and GERD that complains of bilateral knee pain and would like an x-ray and left wrist pain more prominent on flexion. She grabs things with the hands and they fell from hands. She had a left wrist fracture last year and has full range of motion but still has pain and will be referred to occupational therapy. She also has tremors and would see Neurology. Blood pressure and GERD has been stable with medications. She is accompanied by . [facility] Medical History Neck pain Hair loss Seasonal allergic rhinitis due to pollen Nausea B12 deficiency Anxiety Knee osteoarthritis GERD (gastroesophageal reflux disease) Essential hypertension Surgical History History of section Family History Father CVD (cardiovascular disease) Stroke Mother Hypertension Paternal Grandfather Medical history unknown Paternal Uncle Stroke Cancer Social History Housing: Apartment Alcohol intake: never Patient Tobacco Use Status: Never used Tobacco e-Cigarette/Vaping Use: Never Used Second Hand Smoke Exposure: No service: No Current occupational status: disabled Cognitive needs: Yes Hearing needs: No Vision needs: No Questionnaire PHQ-9 Over the last 2 weeks, how often have you been bothered by any of the following problems? 1. Little interest or pleasure in doing things: not at all 2. Feeling down, depressed, or hopeless: not at all 3. Trouble falling or staying asleep, or sleeping too much: several days 4. Feeling tired or having little energy: several days 5. Poor appetite or overeating: not at all 6. Feeling bad about yourself - or that you are a failure or have let yourself or your family down: not at all 7. Trouble concentrating on things, such as reading the newspaper or watching television: not at all 8. Moving or speaking so slowly that other people could have noticed. Or the opposite - being so fidgety or restless that you have been moving around a lot more than usual: not at all 9. Thoughts that you would be better off or of hurting yourself in some way: not at all Total score: 2 Depression Screening Interpretation: Negative Depression Screening Done: Yes 95595 - PHQ-9 Billing: Yes Source: Developed by Drs. Dell Tariq, Domenica Burnette, Edin Dietrich and colleagues, with an educational ron from [employer]. Thrive Questionnaire Date Thrive assessed: 09/26/23 I am a: Patient What is your living situation today?: I have a steady place to live Within the past 12 months, did the food you bought not last and you didn't have the money to get more?: Never true Within the past 12 months, did you worry whether your food would run out before you got money to buy more?: Never true Do you have trouble paying for medicines?: No Do you have trouble getting transportation to medical appointments?: No Do you have trouble paying your heating and electricity bill?: No Do you have trouble taking care of your child, family member or friend?: No Do you have trouble with day-to-day activities such as bathing, preparing meals, shopping, managing finances, etc.?: No Are you currently unemployed and looking for a job?: No Are you interested in more education?: No Please select the resources that you would like help with: None Currently or been in a relationship where the following occur: no concerns reported THRIVE Score: 0 AUDIT C Alcohol Use Questionnaire (AUDIT-C) 1. How often do you have a drink containing alcohol?: Never Total Score: 0 DEANGELO-7 AMB Questionnaire DEANGELO-7 Date DEANGELO - 7 assessed: 09/26/23 Feeling nervous, anxious, or on edge: 1 = Several days Not being able to stop or control worryin = Not at all Worrying too much about different things: 1 = Several days Trouble relaxin = Not at all Being so restless that it is hard to sit still: 0 = Not at all Becoming easily annoyed or irritable: 0 = Not at all Feeling afraid as if something awful might happen: 1 = Several days Total DEANGLEO-7 score (0-4 normal; 5-9 mild; 10-14 moderate; 15-21 severe): 3 Source: Developed by Drs. Dell Tariq, Domenica Burnette, Edin Dietrich and colleagues, with an educational ron from [employer]. DEANGELO-7 Assessment Billing DEANGELO-7 Assessment Tool: DEANGELO-7 Assessment 60753 Review of Systems Const All systems reviewed & are unremarkable except as noted in HPI and below Eyes Reports no additional complaints, Denies change in vision and Denies other visual disturbances Card Denies chest pain at rest, Denies chest pain with activity, Denies edema, Denies irregular heart rhythm, Denies claudication, Denies dyspnea, Denies dyspnea on exertion, Denies orthopnea, Denies paroxysmal nocturnal dyspnea and Denies slow heart rate Resp Denies cough, Denies dyspnea and Denies dyspnea on exertion GI Denies abdominal pain, Denies change in bowel habits, Denies excessive flatus, Denies nausea and Denies vomiting Denies urinary incontinence, Denies urinary hesitancy and Denies urinary urgency Musc Denies abnormal gait, Denies atrophy, Denies deformity, Reports arthralgias and Denies limited range of motion Skin/Breast Denies bleeding lesions, Denies changing lesions and Denies rash Neuro Denies abnormal gait, Denies behavioral changes and Denies lack of coordination Psych Denies behavioral changes Physical exam (Primary Care) Vital Signs: Last Vital Signs BP 134/80 09/26/23 14:01 BMI result Body Mass Index 21.5 Tobacco/Smoking Status: Tobacco use Status Tobacco use date assessed 09/26/23 09/26/23 14:11 Patient Tobacco Use Status Never used Tobacco 09/26/23 14:11 e-Cigarette/Vaping Use Never Used 09/26/23 14:11 PHQ-9: PHQ-9 Score PHQ-9: Total score 2 09/26/23 14:11 Depression Screening Interpretation: Negative Thrive Assessment: Date of Thrive Assessment Date Thrive assessed 09/26/23 09/26/23 14:11 Currently or been in a relationship where the following occur: no concerns reported Eyes General: appearance normal, both eyes and all related structures Eyelids: Yes eyelids normal Conjunctivae: conjunctivae normal Neck Neck: Yes normal visual inspection and Yes supple Resp Effort & Inspection: normal respiratory effort Auscultation: clear to auscultation bilaterally Cardio Jugular venous distension: no JVD Rate: regular rate Rhythm: regular rhythm Heart sounds: S1 normal heart sound present and S2 normal heart sound present Extrem Other: tenderness on left wrist flexion General: Yes full ROM Assessment and Plan Assessment & Plan (1) Left wrist pain: Code(s): M25.532 - Pain in left wrist Plan: Start occupational therapy. (2) Right knee pain: Code(s): M25.561 - Pain in right knee Plan: X-ray ordered. Continue tramadol as needed. (3) Left knee pain: Code(s): M25.562 - Pain in left knee Plan: X-ray ordered. Continue tramadol as needed. (4) Essential hypertension: Code(s): I10 - Essential (primary) hypertension Plan: Continue lisinopril. Blood pressure goal is equal or less than 130/80. (5) GERD (gastroesophageal reflux disease): Code(s): K21.9 - Gastro-esophageal reflux disease without esophagitis Qualifiers: Esophagitis presence: esophagitis presence not specified Qualified Code(s): K21.9 - Gastro-esophageal reflux disease without esophagitis Plan: Continue PPIs as needed. Orders: Orders XR knee LT 2V Today M25.562 - Pain in left knee XR knee RT 1V Today M25.561 - Pain in right knee OT Evaluation and Treatment Today M25.532 - Pain in left wrist Medications: Refilled loratadine 10 mg PO DAILY 90 days PRN 90 tabs 1RF allergy symptoms Coding Level of Care Code Est Pt Level 4 (05129) Diagnoses Left wrist pain M25.532 Right knee pain M25.561 Left knee pain M25.562 Essential hypertension I10 Gastroesophageal reflux disease, unspecified whether esophagitis present K21.9 Esophagitis presence: esophagitis presence not specified Additional Codes DEANGELO-7 Assessment Billing - DEANGELO-7 Assessment Tool: DEANGELO-7 Assessment 01332 ([id number]) Time Spent (min) 24
== END 2023-09-26 14:31 | disposition home or self-care (01) ==
PROVIDERS: PCP Internal Medicine; Visit Provider Internal Medicine
DX: I10 Essential (primary) hypertension (principal); M25.532 Pain in left wrist; M25.561 Pain in right knee; M25.562 Pain in left knee; K21.9 Gastro-esophageal reflux disease without esophagitis
CPT/HCPCS: 99214

== ENCOUNTER 2024-04-03 10:41 | Outpatient (AMB) | payer MEDICARE, MEDICAID, SELFPAY ==
[2024-04-03 10:42] VITALS: BP 140/82; BMI 21.8
--- NOTE | 2024-04-03 10:42 | A.OFFPC_ITS ---
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 Accompanied by: children Allergies ibuprofen [IBUPROFEN] Adverse Reaction (Intermediate, Verified 04/03/24 10:51) BURNING WITH URINATION Medication List - Last Reconciled 04/03/24 by Aubree Pierson MD aspirin (Adult Low Dose Aspirin) 81 mg PO DAILY 30 days cane As directed, Ht: 5'4 , Wt: 118 lbs cholecalciferol (vitamin D3) 50 mcg PO DAILY 90 days citalopram 10 mg PO DAILY 90 days cyanocobalamin (vitamin B-12) 1,000 mcg PO DAILY 90 days Grab bar As directed Ht: 5'4 , Wt: 118 lbs lisinopril 40 mg PO DAILY loratadine 10 mg PO DAILY PRN 90 days omeprazole mg PO Shower Chair As directed, Ht: 5'4 , Wt: 118 lbs [toilet seat elevator As directed, Ht: 5'4 , Wt: 118 lbs.] tramadol 50 mg PO Q6H PRN 28 days Tobacco use date assessed: 09/26/23 Fall risk assessment: No Falls in past year Last assessed Fall Risk: 04/03/24 Dental Screening Dental Screen Date: 09/26/23 HPI HPI Comments History of Present Illness Details This is a 69-year-old female with mild recurrent major depression that comes for her physical exam accompanied by son and daughter. Depression stable with citalopram. Last DEXA scan was 2020 and this will be repeated. She prefers to do Cologuard and colonoscopy. Mammogram was over 2 years ago and will be ordered. Denies any chest pain or shortness on breath. Complains of bilateral knee pain and left ankle pain and would like an x-ray. Also wants a referral for Ophthalmology for a routine eye exam. [facility] Medical History (Updated 04/03/24 @ 12:15 by Aubree Pierson MD) Neck pain Hair loss Seasonal allergic rhinitis due to pollen Nausea B12 deficiency Anxiety Knee osteoarthritis GERD (gastroesophageal reflux disease) Essential hypertension Surgical History History of section Family History Father CVD (cardiovascular disease) Stroke Mother Hypertension Paternal Grandfather Medical history unknown Paternal Uncle Stroke Cancer Social History Housing: Apartment Alcohol intake: never Patient Tobacco Use Status: Never used Tobacco e-Cigarette/Vaping Use: Never Used Second Hand Smoke Exposure: No service: No Current occupational status: disabled Cognitive needs: Yes Hearing needs: No Vision needs: No Questionnaire Thrive Questionnaire Date Thrive assessed: 09/26/23 DEANGELO-7 AMB Questionnaire DEANGELO-7 Date DEANGELO - 7 assessed: 09/26/23 Source: Developed by Drs. Dell Tariq, Domenica Burnette, Edin Dietrich and colleagues, with an educational ron from [employer]. Review of Systems Const All systems reviewed & are unremarkable except as noted in HPI and below Card Denies chest pain at rest, Denies chest pain with activity, Denies edema, Denies irregular heart rhythm, Denies claudication, Denies dyspnea, Denies dyspnea on exertion, Denies orthopnea, Denies paroxysmal nocturnal dyspnea and Denies slow heart rate Resp Denies cough, Denies dyspnea and Denies dyspnea on exertion Musc Reports arthralgias Physical exam (Primary Care) Vital Signs: Last Vital Signs BP 135/80 04/03/24 10:50 BMI result Body Mass Index 21.8 Tobacco/Smoking Status: Tobacco use Status Tobacco use date assessed 09/26/23 04/03/24 10:46 Patient Tobacco Use Status Never used Tobacco 04/03/24 10:46 e-Cigarette/Vaping Use Never Used 04/03/24 10:46 Thrive Assessment: Date of Thrive Assessment Date Thrive assessed 09/26/23 04/03/24 10:46 HENMT Head: Yes normal to inspection, Yes normocephalic and Yes atraumatic Ears: external ears normal Eyes General: appearance normal, both eyes and all related structures Eyelids: Yes eyelids normal Conjunctivae: conjunctivae normal Neck Neck: Yes normal visual inspection and Yes supple Resp Effort & Inspection: normal respiratory effort Auscultation: clear to auscultation bilaterally Cardio Jugular venous distension: no JVD Rate: regular rate Rhythm: regular rhythm Heart sounds: S1 normal heart sound present and S2 normal heart sound present GI Inspection: Yes normal to inspection Palpation (GI): Soft to palpation and nontender Auscultation: normal bowel sounds Skin General skin exam: no rashes or lesions noted Neuro General: no focal motor deficits Extrem General: Yes full ROM Psych Appearance: grossly normal Immunizations pneumoc 20-becki conj-dip cr(PF) 0.5 mL IM syringe Performing Provider: Aubree Pierson MD Performing Location: [facility] Administered by: DENITA Fermin on 04/03/24 11:05 Dose Route Admin Location Dispensed Lot Number Expiration Date NDC Recruiting And Selection Consultant 0.5 mL IM Left Deltoid 0.5 mL [id number] 01/25/25 9954-0728-87 [employer] VIS Given Date VIS Provided VIS Publication Date 04/03/24 Single Vaccine 21 Eligibility Eligibility Date Funding Source Not [facility] Eligible 04/03/24 Private Assessment and Plan Assessment & Plan (1) Physical exam: Code(s): Z00.00 - Encounter for general adult medical examination without abnormal findings Plan: Repeat in a year. (2) Mild recurrent major depression: Code(s): F33.0 - Major depressive disorder, recurrent, mild Plan: Continue citalopram. (3) Left knee pain: Code(s): M25.562 - Pain in left knee Qualifiers: Chronicity: chronic Qualified Code(s): M25.562 - Pain in left knee; G89.29 - Other chronic pain Plan: X-ray ordered. (4) Left ankle pain: Code(s): M25.572 - Pain in left ankle and joints of left foot Qualifiers: Chronicity: chronic Qualified Code(s): M25.572 - Pain in left ankle and joints of left foot; G89.29 - Other chronic pain Plan: X-ray ordered. (5) Right knee pain: Code(s): M25.561 - Pain in right knee Qualifiers: Chronicity: chronic Qualified Code(s): M25.561 - Pain in right knee; G89.29 - Other chronic pain Plan: X-ray ordered. Orders: Orders XR knee LT 2V Today M25.562 - Pain in left knee XR knee RT 2V Today M25.561 - Pain in right knee Lipid Panel Today Z00.00 - Encounter for general adult medical examination without abnormal findings MM screening mammo BI Today Z12.31 - Encounter for screening mammogram for malignant neoplasm of breast XR DEXA axial skeleton Today N95.9 - Unspecified menopausal and perimenopausal disorder Pneumococcal 20 Immunization Today Z23 - Encounter for immunization XR ankle LT 2V Today M25.572 - Pain in left ankle and joints of left foot Comprehensive [place]. Panel Fast Today Z00.00 - Encounter for general adult medical examination without abnormal findings Referrals Cologuard Test Z12.11 - Encounter for screening for malignant neoplasm of c olon, Z12.12 - Encounter for screening for malignant neoplasm of rectum Coding Level of Care Code Est Pt Level 3 (33444) Est Pt Prev Care >65y(29785) Diagnoses Physical exam Z00.00 Mild recurrent major depression F33.0 Chronic pain of left knee M25.562; G89.29 Chronicity: chronic Chronic pain of left ankle M25.572; G89.29 Chronicity: chronic Chronic pain of right knee M25.561; G89.29 Chronicity: chronic Time Spent (min) 33
[2024-04-03 10:50] VITALS: BP 135/80
== END 2024-04-03 11:07 | disposition home or self-care (01) ==
PROVIDERS: PCP Internal Medicine; Visit Provider Internal Medicine
DX: Z00.00 Encounter for general adult medical examination without abnormal findings (principal); F33.0 Major depressive disorder, recurrent, mild; M25.562 Pain in left knee; Z23 Encounter for immunization; G89.29 Other chronic pain; M25.572 Pain in left ankle and joints of left foot; M25.561 Pain in right knee
CPT/HCPCS: 90471; 90677; 99213; 99397

== ENCOUNTER 2024-04-18 10:33 | Outpatient (AMB) | payer MEDICARE, MEDICAID, SELFPAY ==
--- NOTE | 2024-04-18 11:04 | A.OFFVIS_ITS ---
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 Allergies ibuprofen [IBUPROFEN] Adverse Reaction (Intermediate, Verified 04/18/24 11:05) BURNING WITH URINATION Medication List - Last Reconciled 04/18/24 by Neva Escobar MD aspirin (Adult Low Dose Aspirin) 81 mg PO DAILY 30 days cane As directed, Ht: 5'4 , Wt: 118 lbs cholecalciferol (vitamin D3) 50 mcg PO DAILY 90 days citalopram 10 mg PO DAILY 90 days cyanocobalamin (vitamin B-12) 1,000 mcg PO DAILY 90 days Grab bar As directed Ht: 5'4 , Wt: 118 lbs lisinopril 40 mg PO DAILY loratadine 10 mg PO DAILY PRN 90 days omeprazole mg PO Shower Chair As directed, Ht: 5'4 , Wt: 118 lbs [toilet seat elevator As directed, Ht: 5'4 , Wt: 118 lbs.] tramadol 50 mg PO Q6H PRN 28 days HPI Comments Details: 69y/o female comes for evaluation of tremors .The tremors are in her hands for past 20 years but for the pats 3 years it has worsened and she is noticing difficulty with hand coordination. she has trouble dressing, holding things in her hand , showering, drinking eating etc It used to be with action only but now she has it at rest. she is right handed .she recently had left wrist fracture .No neck or head tremors. The tremors are worse when she is anxious and stressed. no family h/o tremors No h/o exposure to neuroleptics.No exposure to reglan. No h/o head injury No memory issues or sleep issues she has neck pain [facility] Medical History (Updated 04/18/24 @ 11:37 by Neva Escobar MD) Essential and other specified forms of tremor Neck pain Hair loss Seasonal allergic rhinitis due to pollen Nausea B12 deficiency Anxiety Knee osteoarthritis GERD (gastroesophageal reflux disease) Essential hypertension Surgical History History of section Family History Father CVD (cardiovascular disease) Stroke Mother Hypertension Paternal Grandfather Medical history unknown Paternal Uncle Stroke Cancer Social History Housing: Apartment Alcohol intake: never Patient Tobacco Use Status: Never used Tobacco e-Cigarette/Vaping Use: Never Used Second Hand Smoke Exposure: No service: No Current occupational status: disabled Cognitive needs: Yes Hearing needs: No Vision needs: No Physical Exam Vital Signs: Last Vital Signs Pulse 70 04/18/24 11:05 Resp 16 04/18/24 11:05 BP 140/80 H 04/18/24 11:05 Pulse Ox 96 04/18/24 11:05 Oxygen Delivery Method Room Air 04/18/24 11:05 BMI result Body Mass Index 21.1 Const General: cooperative, healthy appearing, comfortable and no acute distress Nutritional Appearance: average body habitus Orientation/consciousness: patient oriented x3 Eyes Pupils: Equal, round and reactive pupils present Neck Neck: Yes no meningeal signs Neuro Other: Lencho UE postural tremors ACtion tremors - worse with writing and archimedes spiral General: patient oriented x3, tone normal, moves all extremities, no meningeal signs and no focal motor deficits Cranial nerves: Yes Facial sensation intact/muscles of mastication intact, Yes Equal, round and reactive pupils present, Yes Bilaterally intact EOM present, Yes Nystagmus not present, Yes Normal facial strength present, Yes Midline tongue present and Yes Symmetric palate elevation present Cognition (Neuro): normal cognition Gait exam (Neuro): Normal gait present Motor exam (neuro): 5/5 motor strength present throughout and Normal motor muscle tone present throughout Deep tendon reflexes (DTR's): Right triceps reflex intensity grade: 2+, Left triceps reflex intensity grade: 2+, Rt Biceps (C5, C6): 2+, Left biceps reflex intensity grade: 2+, Right brachioradialis reflex intensity grade: 2+, Left brachioradialis reflex intensity grade: 2+, Right patellar reflex intensity grade: 2+ and Left patellar reflex intensity grade: 2+ Coordination: [id number] test normal Assessment & Plan Assessment & Plan (1) Essential and other specified forms of tremor: Code(s): G25.0 - Essential tremor; G25.2 - Other specified forms of tremor Category: Medical Plan I will trial her on propranolol 10mg bid for tremors Occupational therapy for hand strengthening. Orders: Orders OT Evaluation and Treatment Today G25.0 - Essential tremor, G25.2 - Other specified forms of tremor Medications: New propranolol 10 mg PO BID 60 tabs 6RF Coding Level of Care Code New Pt Level 4 (06085) Diagnoses Essential and other specified forms of tremor G25.0; G25.2
[2024-04-18 11:05] VITALS: BP 140/80; PULSE 70; RESP 16; O2SAT 96; BMI 21.1
== END 2024-04-18 11:45 | disposition home or self-care (01) ==
PROVIDERS: PCP Internal Medicine; Visit Provider Psychiatry & Neurology Neurology
DX: G25.0 Essential tremor (principal); G25.2 Other specified forms of tremor
CPT/HCPCS: 99204

== ENCOUNTER → 2024-04-18 10:33 | Outpatient (BNVA) | payer MEDICARE, MEDICAID, SELFPAY | PROVIDERS: PCP Internal Medicine; Visit Provider Psychiatry & Neurology Neurology | DX: G25.0 Essential tremor (principal); G25.2 Other specified forms of tremor | CPT/HCPCS: 99202 ==

== ENCOUNTER 2024-05-30 13:30 | Outpatient (RCR) | payer MEDICARE, MEDICAID, SELFPAY ==
--- NOTE | 2024-05-14 16:03 | MHC.OT.EP ---
[address] [phone] Occupational Therapy Plan of Care Patient Name: Ricarda Dillard Date of Evaluation: 05/09/24 Diagnosis: Pain Location: dorsal side of hand / fingers Herbedens and Bouchards nodes noted Pain Score: 7 Pain Scale Used: Numeric (0 - 10) Aggravating Factors: Alleviating Factors: Assessment: Pt is a 69 yr. old R hand dominant female who reports tremoring in B hands for years, but has gotten worse in the last year. She reported several members of her family having them and they worsen w/ activity. She is concerned because over the last year she has had difficulty w/ cooking, cleaning, and writing. She saw the MD who prescribed her propanol but she reports not taking it due to concerns for how it will mix w/ her other medications for her blood pressure and is going to speak to her MD before taking it. Pt reports a medical hx of a L DRF last year which was treated conservatively w/ out OT therapy, so has mild pain on the dorsal side of her hand and wrist. 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 Her children and family live close by to help as needed. 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 Thank you once again for your referral.
== END 2024-07-16 12:47 | disposition home or self-care (01) ==
LOC: HO.OT 13:30
PROVIDERS: PCP Internal Medicine; Visit Provider Psychiatry & Neurology Neurology
DX: G25.2 Other specified forms of tremor (principal)
CPT/HCPCS: 29130; 97110; 97165; 97535; 97760

== ENCOUNTER 2024-09-03 11:10 | Outpatient (AMB) | payer MEDICARE, MEDICAID, SELFPAY ==
--- NOTE | 2024-09-03 11:23 | A.OFFPC_ITS ---
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 Accompanied by: Self / Same As Patient Allergies ibuprofen [IBUPROFEN] Adverse Reaction (Intermediate, Verified 09/03/24 11:34) BURNING WITH URINATION Medication List - Last Reconciled 09/03/24 by Aubree Pierson MD aspirin (Adult Low Dose Aspirin) 81 mg PO DAILY 30 days cane As directed, Ht: 5'4 , Wt: 118 lbs cholecalciferol (vitamin D3) 50 mcg PO DAILY 90 days citalopram 10 mg PO DAILY 90 days cyanocobalamin (vitamin B-12) 1,000 mcg PO DAILY 90 days Grab bar As directed Ht: 5'4 , Wt: 118 lbs lisinopril 40 mg PO DAILY loratadine 10 mg PO DAILY PRN 90 days omeprazole mg PO propranolol 10 mg PO BID Shower Chair As directed, Ht: 5'4 , Wt: 118 lbs [toilet seat elevator As directed, Ht: 5'4 , Wt: 118 lbs.] tramadol 50 mg PO Q6H PRN 28 days Tobacco use date assessed: 09/03/24 Fall risk assessment: No Falls in past year Last assessed Fall Risk: 09/03/24 Dental Screening Dental Screen Date: 09/03/24 Did you have a dental visit in the last 12 months?: No Did you have a dental problem in the last 6 months where you did not have access to dental care?: No Was dental information given to patient?: Patient has dentist HPI HPI Comments History of Present Illness Details This is a 69-year-old female that comes today for follow-up on hypertension, GERD, mild recurrent major depression and left-sided sciatica. Blood pressure has been stable. GERD stable with PPIs. Depression well controlled with citalopram. She does complains of low back pain radiating to the left leg and associated with left leg numbness and tingling. No fever, bowel or bladder incontinence. Pain has aggravated for the past couple of months. I will refer her to pain management and order x-rays. [facility] Medical History (Updated 09/03/24 @ 11:48 by Aubree Pierson MD) Essential and other specified forms of tremor Neck pain Hair loss Seasonal allergic rhinitis due to pollen Nausea B12 deficiency Anxiety Knee osteoarthritis GERD (gastroesophageal reflux disease) Essential hypertension Surgical History History of section Family History Father CVD (cardiovascular disease) Stroke Mother Hypertension Paternal Grandfather Medical history unknown Paternal Uncle Stroke Cancer Social History Housing: Apartment Alcohol intake: never Patient Tobacco Use Status: Never used Tobacco e-Cigarette/Vaping Use: Never Used Second Hand Smoke Exposure: No service: No Current occupational status: disabled Cognitive needs: Yes Hearing needs: No Vision needs: No Questionnaire PHQ-9 Over the last 2 weeks, how often have you been bothered by any of the following problems? 1. Little interest or pleasure in doing things: not at all 2. Feeling down, depressed, or hopeless: not at all 3. Trouble falling or staying asleep, or sleeping too much: not at all 4. Feeling tired or having little energy: not at all 5. Poor appetite or overeating: not at all 6. Feeling bad about yourself - or that you are a failure or have let yourself or your family down: not at all 7. Trouble concentrating on things, such as reading the newspaper or watching television: not at all 8. Moving or speaking so slowly that other people could have noticed. Or the opposite - being so fidgety or restless that you have been moving around a lot more than usual: not at all 9. Thoughts that you would be better off or of hurting yourself in some way: not at all Total score: 0 Depression Screening Interpretation: Negative Depression Screening Done: Yes 53744 - PHQ-9 Billing: Yes Source: Developed by Drs. Dell Tariq, Domenica Burnette, Edin Dietrich and colleagues, with an educational ron from [employer]. Thrive Questionnaire Date Thrive assessed: 09/03/24 I am a: Patient What is your living situation today?: I have a steady place to live Within the past 12 months, did the food you bought not last and you didn't have the money to get more?: Never true Within the past 12 months, did you worry whether your food would run out before you got money to buy more?: Never true Do you have trouble paying for medicines?: No Do you have trouble getting transportation to medical appointments?: No Do you have trouble paying your heating and electricity bill?: No Do you have trouble taking care of your child, family member or friend?: No Do you have trouble with day-to-day activities such as bathing, preparing meals, shopping, managing finances, etc.?: No Are you currently unemployed and looking for a job?: No Are you interested in more education?: No Please select the resources that you would like help with: None Currently or been in a relationship where the following occur: No concerns reported THRIVE Score: 0 AUDIT C Alcohol Use Questionnaire (AUDIT-C) 1. How often do you have a drink containing alcohol?: Never Total Score: 0 Score Reviewed/Action Taken: No DEANGELO-7 AMB Questionnaire DEANGELO-7 Date DEANGELO - 7 assessed: 09/03/24 Feeling nervous, anxious, or on edge: 1 = Several days Not being able to stop or control worryin = Not at all Worrying too much about different things: 1 = Several days Trouble relaxin = Not at all Being so restless that it is hard to sit still: 0 = Not at all Becoming easily annoyed or irritable: 0 = Not at all Feeling afraid as if something awful might happen: 1 = Several days Total DEANGELO-7 score (0-4 normal; 5-9 mild; 10-14 moderate; 15-21 severe): 3 Source: Developed by Drs. Dell Tariq, Domenica Burnette, Edin Dietrich and colleagues, with an educational ron from [employer]. DEANGELO-7 Assessment Billing DEANGELO-7 Assessment Tool: DEANGELO-7 Assessment 76832 Review of Systems Const All systems reviewed & are unremarkable except as noted in HPI and below Card Denies chest pain at rest, Denies chest pain with activity, Denies edema, Denies irregular heart rhythm, Denies claudication, Denies dyspnea, Denies dyspnea on exertion, Denies orthopnea, Denies paroxysmal nocturnal dyspnea and Denies slow heart rate Resp Denies cough, Denies dyspnea and Denies dyspnea on exertion GI Denies abdominal pain, Denies change in bowel habits, Denies excessive flatus, Denies nausea and Denies vomiting Musc Reports back pain, Reports numbness, Reports radiating pain into limb and Reports tingling Neuro Reports numbness and Reports tingling Physical exam (Primary Care) Vital Signs: Last Vital Signs BP 136/80 09/03/24 11:24 BMI result Body Mass Index 22.0 Tobacco/Smoking Status: Tobacco use Status Tobacco use date assessed 09/03/24 09/03/24 11:29 Patient Tobacco Use Status Never used Tobacco 09/03/24 11:27 e-Cigarette/Vaping Use Never Used 09/03/24 11:27 PHQ-9: PHQ-9 Score PHQ-9: Total score 0 09/03/24 11:37 Depression Screening Interpretation: Negative Thrive Assessment: Date of Thrive Assessment Date Thrive assessed 09/03/24 09/03/24 11:27 Currently or been in a relationship where the following occur: No concerns reported Resp Effort & Inspection: normal respiratory effort Auscultation: clear to auscultation bilaterally Cardio Jugular venous distension: no JVD Rate: regular rate Rhythm: regular rhythm Heart sounds: S1 normal heart sound present and S2 normal heart sound present Back/Spine/Pelvis Thoracic/Lumbar Spine: straight leg raise positive left at 40 degrees Extrem General: Yes full ROM Office Procedures Flu Questionnaire Does the patient have a severe egg allergy?: No Immunizations Fluarix Triv [id number] (PF) 45 mcg (15 mcg x 3)/0.5 mL IM syringe Performing Provider: Aubree Pierson MD [facility] Documented (not given) by: DENITA Fermin on 09/03/24 11:27 Reason Not Given: Received Previously Coding Level of Care Code Est Pt Level 4 (09441) Complex EM visit Add On G2211 Diagnoses Left sided sciatica M54.32 Mild recurrent major depression F33.0 Essential hypertension I10 Gastroesophageal reflux disease, unspecified whether esophagitis present K21.9 Esophagitis presence: esophagitis presence not specified Additional Codes DEANGELO-7 Assessment Billing - DEANGELO-7 Assessment Tool: DEANGELO-7 Assessment [id number] ([id number]) PHQ-9 - 08712 - PHQ-9 Billing: Yes ([id number]) Time Spent (min) 22 Assessment & Plan Assessment & Plan (1) Left sided sciatica: Code(s): M54.32 - Sciatica, left side Category: Medical Plan: Continue tramadol. X-ray ordered. Referred to pain management. (2) Mild recurrent major depression: Code(s): F33.0 - Major depressive disorder, recurrent, mild Category: Medical Plan: Continue citalopram. (3) Essential hypertension: Code(s): I10 - Essential (primary) hypertension Category: Medical Plan: Continue lisinopril. Blood pressure goal is equal or less than 130/80. (4) GERD (gastroesophageal reflux disease): Code(s): K21.9 - Gastro-esophageal reflux disease without esophagitis Category: Medical Qualifiers: Esophagitis presence: esophagitis presence not specified Qualified Code(s): K21.9 - Gastro-esophageal reflux disease without esophagitis Plan: Continue PPIs. Orders: Orders Influenza [id number] Immunization Today Z23 - Encounter for immunization XR lumbar spine 2-3V Today M54.32 - Sciatica, left side XR hip LT 1V Today M25.552 - Pain in left hip Referrals Pain Management Referral M54.32 - Sciatica, left side Medications: Changed From omeprazole PO To omeprazole 20 mg PO DAILY 90 caps 1RF 90 days Refilled cyanocobalamin (vitamin B-12) 1,000 mcg PO DAILY 90 tabs 1RF 90 days cholecalciferol (vitamin D3) 50 mcg PO DAILY 90 caps 1RF 90 days loratadine 10 mg PO DAILY PRN 90 tabs 1RF allergy symptoms 90 days
[2024-09-03 11:24] VITALS: BP 136/80; BMI 22.0
== END 2024-09-03 11:46 | disposition home or self-care (01) ==
PROVIDERS: PCP Internal Medicine; Visit Provider Internal Medicine
DX: M54.32 Sciatica, left side (principal); F33.0 Major depressive disorder, recurrent, mild; I10 Essential (primary) hypertension; K21.9 Gastro-esophageal reflux disease without esophagitis; Z23 Encounter for immunization

== ENCOUNTER → 2024-09-03 11:10 | Outpatient (BNVA) | payer MEDICARE, MEDICAID, SELFPAY | PROVIDERS: PCP Internal Medicine; Visit Provider Internal Medicine | DX: M54.32 Sciatica, left side (principal); F33.0 Major depressive disorder, recurrent, mild; K21.9 Gastro-esophageal reflux disease without esophagitis; I10 Essential (primary) hypertension | CPT/HCPCS: 90471; 96127; 99212 ==

== ENCOUNTER 2024-09-11 12:58 | Outpatient (AMB) | payer MEDICARE, MEDICAID, SELFPAY ==
--- NOTE | 2024-09-11 13:14 | MHC.OFFVIS ---
Vital Signs 09/11/24 13:19 Height 5 ft 4 in Weight 128 lb 8 oz BMI 22.1 BP 151/70 H Blood Pressure Location Lt brachial Position Sitting Pulse 59 Pulse Source Pulse Oximeter Pulse Oximetry (%) 97 Oxygen Delivery Method Room Air Intake Visit Reasons: Sciatica, left side Intake Note: Pain today 10/10 Ship Worker Required: No Accompanied by: Daughter Allergies ibuprofen [IBUPROFEN] Adverse Reaction (Intermediate, Verified 09/11/24 13:20) BURNING WITH URINATION HPI Comments Details: Ricarda is very pleasant 69 years old female who presents in my office when accompanied by her daughter with complains on pain in the projection of the left iliac crest with radiation of the pain in the posterior surface of the thigh posterior surface of the hip serious surface of the lower leg but not in the foot. She reports her pain is more severe when she is walking sitting. She reports that she can not sleep normally, she can not do activities of daily living, she can not take care of herself but she can function normally. She is on permanent disability. Weather changes and called aggravate her pain. Also movements aggravate her pain. Topical medications make her pain slightly better. Her pain is severe and 10/10. In terms of tissue damage he reports her pain is jumping flushing shooting, stabbing lancinating, pinching, hot burning, tiring, exhausting, spreading, radiating sensation. She never had images related to her pain. She never had physical therapy related to her pain. Only physical therapy she had was addressed to her hands. Physical therapy and massage therapy was done on her hands. She never had any injections. Her past medical history significant for heartburns arthritis and headaches. No surgical history. Social history: She denies smoking cigarettes, she denies drinking alcohol, she denies drinking soda, she takes 1 or 2 cups of coffee a day. Denies recreational drugs. [facility] Medical History Essential and other specified forms of tremor Neck pain Hair loss Seasonal allergic rhinitis due to pollen Nausea B12 deficiency Anxiety Knee osteoarthritis GERD (gastroesophageal reflux disease) Essential hypertension Surgical History History of section Family History Father CVD (cardiovascular disease) Stroke Mother Hypertension Paternal Grandfather Medical history unknown Paternal Uncle Stroke Cancer Social History Housing: Apartment Alcohol intake: never Patient Tobacco Use Status: Never used Tobacco e-Cigarette/Vaping Use: Never Used Second Hand Smoke Exposure: No service: No Current occupational status: disabled Cognitive needs: Yes Hearing needs: No Vision needs: No Review of Systems Const All systems reviewed & are unremarkable except as noted in HPI and below Reports no additional complaints ENT Reports Normal hearing present Card Reports no additional complaints Resp Reports no additional complaints GI Reports no additional complaints Reports no additional complaints Musc Reports as per HPI Neuro Reports Normal hearing present, Denies Abnormal speech present, Denies confusion and Denies Sensory deficit (Neuro) Psych Reports no additional complaints and Denies confusion Physical Exam Vital Signs: Last Vital Signs Pulse 59 09/11/24 13:19 BP 151/70 H 09/11/24 13:19 Pulse Ox 97 09/11/24 13:19 Oxygen Delivery Method Room Air 09/11/24 13:19 BMI result Body Mass Index 22.1 Const General: no acute distress; No confusion Nutritional Appearance: average body habitus Orientation/consciousness: patient oriented x3 and No confusion Limitations: language barrier Eyes General: appearance normal, both eyes and all related structures Pupils: Equal, round and reactive pupils present EOM: EOMs intact bilaterally Neck Neck: Yes full ROM Chest Chest palpation & inspection: normal inspection of the chest Resp Effort & Inspection: normal respiratory effort, able to speak in complete sentences, normal respiratory pattern, no audible wheezes and no cough Cardio Jugular venous distension: no JVD GI Inspection: Yes normal to inspection Back/Spine/Pelvis Other: No tenderness on palpation in paraspinal spinal region lumbar spine or sacral bone. Flexing forward and flexing backwards does not affects her pain. Tenderness on palpation in the projection of the right iliac crest. SLR is negative bilaterally for the back of the pain. She reports pain in the legs with SLR only. Armen test is negative bilaterally. Lateral and medial rotation of the bilateral thighs do not cause aggravation of the pain in the groin. Neuro General: patient oriented x3, gait normal and No confusion Cranial nerves: Yes CN's II-XII intact bilaterally, Yes Equal, round and reactive pupils present, Yes Normal hearing present and Yes Ability to bilaterally elevate shoulders present Speech: No Abnormal speech present Gait exam (Neuro): Normal gait present Motor exam (neuro): 5/5 motor strength present throughout Sensory Exam: No Sensory deficit (Neuro) Extrem General: No pedal edema Psych Speech and movement: Normal speech and movement present Affect: normal affect Attitude: cooperative Thought process: Normal thought process present Thought content: Normal thought content present Insight: Good insight present (Psych) Judgement: Good judgement present (Psych) Assessment & Plan Assessment & Plan (1) 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 Unfortunately she did not complete any physical therapy in the past. Before starting to do any injections for her I would need to schedule her for physical therapy. She also requests me to prescribe her Tylenol to her pharmacy, I will prescribe Tylenol 500 mg t.i.d. p.r.n. pain. When the patient will complete physical therapy her condition I will schedule her for cluneal nerve injection under sedation if her pain is not better. 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
[2024-09-11 13:19] VITALS: BP 151/70; PULSE 59; O2SAT 97; BMI 22.1
== END 2024-09-11 13:38 | disposition home or self-care (01) ==
PROVIDERS: PCP Internal Medicine; Referring Provider Internal Medicine; Visit Provider Anesthesiology
DX: G89.4 Chronic pain syndrome (principal)
CPT/HCPCS: 99203

== ENCOUNTER → 2024-09-11 12:58 | Outpatient (BNVA) | payer MEDICARE, MEDICAID, SELFPAY | PROVIDERS: PCP Internal Medicine; Referring Provider Internal Medicine; Visit Provider Anesthesiology | DX: G89.4 Chronic pain syndrome (principal); G59 Mononeuropathy in diseases classified elsewhere | CPT/HCPCS: 99202 ==

== ENCOUNTER 2024-09-11 13:42 | Outpatient (REF) | payer MEDICARE, MEDICAID, SELFPAY ==
--- NOTE | ~2024-09-11 | XR_ITS ---
EXAMINATION: XR LUMBOSACRAL SPINE CLINICAL INFORMATION: M54.32 - Sciatica, left side COMPARISON: Lumbar spine 08/13/2014 TECHNIQUE: Three views of the lumbosacral spine. FINDINGS: There is normal lumbar lordosis. The vertebral heights and alignment is normal. There is loss of L5-S1 disc height with mild ventral spondylosis. No aggressive lytic or sclerotic process seen. The soft tissues are normal. SI joints are normal. No visible acute fracture, dislocation or lytic process seen. XR/XR lumbar spine 2-3V IMPRESSION: Mildly in this changes L5-S1 disc level. No visible acute fracture, dislocation or subluxation seen. Electronically signed by: Edwin Chong MD 09/12/2024 10:25 AM MIKO
--- NOTE | ~2024-09-11 | XR_ITS ---
EXAMINATION: XR HIP, LEFT CLINICAL INFORMATION: M25.552 - Pain in left hip COMPARISON: None available. TECHNIQUE: Two views of the left hip. AP pelvis one view. FINDINGS: AP pelvis: There is normal symmetry of bilateral hip joints and SI joints. No fracture, lytic or sclerotic process seen. The soft tissues are normal. AP and frog-leg views left hip reveal No visible acute fracture or dislocation.. Alignment is anatomic. Hip joint space is maintained. Soft tissues are unremarkable. XR/XR hip LT min 2V IMPRESSION: Normal AP pelvis. Normal left hip exam. Electronically signed by: Edwin Chong MD 09/12/2024 10:26 AM EST
== END 2024-09-11 13:43 | disposition home or self-care (01) ==
LOC: HO.XRAY 13:42
PROVIDERS: PCP Internal Medicine; Visit Provider Internal Medicine
DX: M54.32 Sciatica, left side (principal); M25.552 Pain in left hip
CPT/HCPCS: 72100; 73502

== ENCOUNTER → 2024-09-11 13:51 | Outpatient (BNV) | payer MEDICARE, MEDICAID, SELFPAY | PROVIDERS: PCP Internal Medicine; Visit Provider Radiology Diagnostic Radiology | DX: M54.32 Sciatica, left side (principal); M25.552 Pain in left hip | CPT/HCPCS: 72100; 73502 ==

== ENCOUNTER 2024-10-23 12:40 | Outpatient (AMB) | payer MEDICARE, MEDICAID, SELFPAY ==
[2024-10-23 12:58] VITALS: BP 181/84; PULSE 66; O2SAT 98; BMI 22.3
--- NOTE | 2024-10-23 12:58 | A.OFFVIS_ITS ---
Vital Signs 10/23/24 12:58 Height 5 ft 4 in Weight 130 lb 2 oz BMI 22.3 BP 181/84 H Blood Pressure Location Lt brachial Position Sitting Pulse 66 Pulse Source Pulse Oximeter Pulse Oximetry (%) 98 Oxygen Delivery Method Room Air Intake Visit Reasons: 6 Week Follow Up Allergies ibuprofen [IBUPROFEN] Adverse Reaction (Intermediate, Verified 10/23/24 13:01) BURNING WITH URINATION HPI Comments Details: Ricarda is back in my office, unfortunately she did not complete physical therapy. Physical therapy office tried to contact this patient and her mailbox on herself on was completely full. Therefore they were not able to reach her. We will request physical therapy to contact her daughters cell phone which will be left in our system. Lumbar spine x-ray was performed on her, there are age- related changes, see full description as below. Prior: very pleasant 69 years old female who presents in my office when acc ompanied by her daughter with complains on pain in the projection of the left iliac crest with radiation of the pain in the posterior surface of the thigh posterior surface of the hip serious surface of the lower leg but not in the foot. Her pain is more severe when she is walking sitting. Topical medications make her pain slightly better. Her pain is severe and 10/10. She never had images related to her pain. She never had physical therapy related to her pain. She never had injections and she has negative about injections [facility] Medical History Essential and other specified forms of tremor Neck pain Hair loss Seasonal allergic rhinitis due to pollen Nausea B12 deficiency Anxiety Knee osteoarthritis GERD (gastroesophageal reflux disease) Essential hypertension Surgical History History of section Family History Father CVD (cardiovascular disease) Stroke Mother Hypertension Paternal Grandfather Medical history unknown Paternal Uncle Stroke Cancer Social History Housing: Apartment Alcohol intake: never Patient Tobacco Use Status: Never used Tobacco e-Cigarette/Vaping Use: Never Used Second Hand Smoke Exposure: No service: No Current occupational status: disabled Cognitive needs: Yes Hearing needs: No Vision needs: No Review of Systems Const All systems reviewed & are unremarkable except as noted in HPI and below ENT Reports Normal hearing present Neuro Reports Normal hearing present, Denies Abnormal speech present, Denies confusion and Denies Sensory deficit (Neuro) Psych Denies confusion Physical Exam Vital Signs: Last Vital Signs Pulse 66 10/23/24 12:58 BP 181/84 H 10/23/24 12:58 Pulse Ox 98 10/23/24 12:58 Oxygen Delivery Method Room Air 10/23/24 12:58 BMI result Body Mass Index 22.3 Const General: no acute distress; No confusion Nutritional Appearance: average body habitus Orientation/consciousness: patient oriented x3 and No confusion Limitations: language barrier Eyes General: appearance normal, both eyes and all related structures Pupils: Equal, round and reactive pupils present EOM: EOMs intact bilaterally Neck Neck: Yes full ROM Chest Chest palpation & inspection: normal inspection of the chest Resp Effort & Inspection: normal respiratory effort, able to speak in complete sentences, normal respiratory pattern, no audible wheezes and no cough Cardio Jugular venous distension: no JVD GI Inspection: Yes normal to inspection Back/Spine/Pelvis Other: No tenderness on palpation in paraspinal spinal region lumbar spine or sacral bone. Flexing forward and flexing backwards does not affects her pain. Tenderness on palpation in the projection of the right iliac crest. SLR is negative bilaterally for the back of the pain. She reports pain in the legs with SLR only. Armen test is negative bilaterally. Lateral and medial r otation of the bilateral thighs do not cause aggravation of the pain in the groin. Neuro General: patient oriented x3, gait normal and No confusion Cranial nerves: Yes CN's II-XII intact bilaterally, Yes Equal, round and reactive pupils present, Yes Normal hearing present and Yes Ability to bilaterally elevate shoulders present Speech: No Abnormal speech present Gait exam (Neuro): Normal gait present Motor exam (neuro): 5/5 motor strength present throughout Sensory Exam: No Sensory deficit (Neuro) Extrem General: No pedal edema Psych Speech and movement: Normal speech and movement present Affect: normal affect Attitude: cooperative Thought process: Normal thought process present Thought content: Normal thought content present Insight: Good insight present (Psych) Judgement: Good judgement present (Psych) Results Reviewed Results Reviewed: 09/22/2024. X-ray lumbar spine There is normal lumbar lordosis. The vertebral heights and alignment is normal. There is loss of L5-S1 disc height with mild ventral spondylosis. No aggressive lytic or sclerotic process seen. The soft tissues are normal. SI joints are normal. No visible acute fracture, dislocation or lytic process seen. 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 Unfortunately she did not complete any physical therapy again. Her cell phone was full and blocked and physical therapy was calling her and unable to leave the message. We will attempt again to bring her on the same order to perform physical therapy. In any case she is negative about injections. Therefore in this office her only option is physical therapy. We agreed that we when she will complete physical therapy she will schedule an appointment with me. 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
== END 2024-10-23 13:35 | disposition home or self-care (01) ==
PROVIDERS: PCP Internal Medicine; Visit Provider Anesthesiology
DX: G89.4 Chronic pain syndrome (principal); G59 Mononeuropathy in diseases classified elsewhere
CPT/HCPCS: 99213

== ENCOUNTER → 2024-10-23 12:40 | Outpatient (BNVA) | payer MEDICARE, MEDICAID, SELFPAY | PROVIDERS: PCP Internal Medicine; Visit Provider Anesthesiology | DX: G89.4 Chronic pain syndrome (principal); G59 Mononeuropathy in diseases classified elsewhere | CPT/HCPCS: 99212 ==

== ENCOUNTER → 2024-10-31 14:13 | Outpatient (BNVA) | payer MEDICARE, MEDICAID, SELFPAY | PROVIDERS: PCP Internal Medicine ==

== ENCOUNTER 2024-11-18 08:05 | Outpatient (AMB) | payer MEDICARE, MEDICAID, SELFPAY ==
[2024-11-18 08:08] VITALS: BMI 23.0
--- NOTE | 2024-11-18 08:08 | A.OFFVIS_ITS ---
Vital Signs 11/18/24 08:08 Height 5 ft 4 in Weight 134 lb BMI 23.0 Intake Visit Reasons: Follow up Tremors Intake Note: Patient following up on tremors. med trial propranolol. OT consult 05/30/24 & 07/16/24 Grain Elevator Operator Required: Yes Grain Elevator Operator Services: Grain Elevator Operator Present Grain Elevator Operator Name: Karen Donnelly Allergies ibuprofen [IBUPROFEN] Adverse Reaction (Intermediate, Verified 11/18/24 08:10) BURNING WITH URINATION Medication List - Last Reconciled 11/18/24 by Neva Escobar MD acetaminophen (Tylenol Extra Strength) 500 mg PO TID PRN 30 days aspirin (Adult Low Dose Aspirin) 81 mg PO DAILY 30 days [Blood pressure monitor As directed] cane As directed, Ht: 5'4 , Wt: 118 lbs cholecalciferol (vitamin D3) 50 mcg PO DAILY 90 days citalopram 10 mg PO DAILY 90 days cyanocobalamin (vitamin B-12) 1,000 mcg PO DAILY 90 days Grab bar As directed Ht: 5'4 , Wt: 118 lbs lisinopril 40 mg PO DAILY loratadine 10 mg PO DAILY PRN 90 days omeprazole 20 mg PO DAILY 90 days propranolol 10 mg PO BID Shower Chair As directed, Ht: 5'4 , Wt: 118 lbs [toilet seat elevator As directed, Ht: 5'4 , Wt: 118 lbs.] tramadol 50 mg PO Q6H PRN 28 days HPI Comments Details: 69y/o female comes for follow up. of tremors .Karen Almendarez , a certified Plant Health Care Technician helped during todays appointment. The tremors are better with [id number] and after she did OT. she denies nay side effects form propranolol. History from initial visit-The tremors are in her hands for past 20 years but for the past 3 years it has worsened and she is noticing difficulty with hand coordination. she has trouble dressing, holding things in her hand , showering, drinking eating etc It used to be with action only but now she has it at rest. she is right handed .she recently had left wrist fracture .No neck or head tremors. The tremors are worse when she is anxious and stressed. no family h/o tremors No h/o exposure to neuroleptics.No exposure to reglan. No h/o head injury No memory issues or sleep issues she has neck pain [facility] Medical History Essential and other specified forms of tremor Neck pain Hair loss Seasonal allergic rhinitis due to pollen Nausea B12 deficiency Anxiety Knee osteoarthritis GERD (gastroesophageal reflux disease) Essential hypertension Surgical History History of section Family History Father CVD (cardiovascular disease) Stroke Mother Hypertension Paternal Grandfather Medical history unknown Paternal Uncle Stroke Cancer Social History Housing: Apartment Alcohol intake: never Patient Tobacco Use Status: Never used Tobacco e-Cigarette/Vaping Use: Never Used Second Hand Smoke Exposure: No service: No Current occupational status: disabled Cognitive needs: Yes Hearing needs: No Vision needs: No Physical Exam Vital Signs: BMI result Body Mass Index 23.0 Const General: cooperative, healthy appearing, comfortable and no acute distress Nutritional Appearance: average body habitus Orientation/consciousness: patient oriented x3 Eyes Pupils: Equal, round and reactive pupils present Neck Neck: Yes no meningeal signs Neuro Other: Lencho UE postural tremors- mild ACtion tremors - worse with writing and archimedes spiral General: patient oriented x3, tone normal, moves all extremities, no meningeal signs and no focal motor deficits Cranial nerves: Yes Facial sensation intact/muscles of mastication intact, Yes Equal, round and reactive pupils present, Yes Bilaterally intact EOM present, Yes Nystagmus not present, Yes Normal facial strength present, Yes Midline tongue present and Yes Symmetric palate elevation present Cognition (Neuro): normal cognition Gait exam (Neuro): Normal gait present Motor exam (neuro): 5/5 motor strength present throughout and Normal motor mus michaela tone present throughout Coordination: [id number] test normal Assessment & Plan Assessment & Plan (1) Essential and other specified forms of tremor: Code(s): G25.0 - Essential tremor; G25.2 - Other specified forms of tremor Category: Medical Plan Continue propranolol 10mg bid for tremors- can use an extra tablet as needed Continue hand exercises Medications: Changed From propranolol 10 mg PO BID 60 tabs 6RF To propranolol 10 mg PO BID 90 days 180 tabs 6RF Coding Level of Care Code Est Pt Level 4 (66225) Diagnoses Essential and other specified forms of tremor G25.0; G25.2
== END 2024-11-18 08:26 | disposition home or self-care (01) ==
LOC: HO.HSMS 08:06
PROVIDERS: PCP Internal Medicine; Visit Provider Psychiatry & Neurology Neurology
DX: G25.0 Essential tremor (principal); G25.2 Other specified forms of tremor
CPT/HCPCS: 99214

== ENCOUNTER → 2024-11-18 08:05 | Outpatient (BNVA) | payer MEDICARE, MEDICAID, SELFPAY | PROVIDERS: PCP Internal Medicine; Visit Provider Psychiatry & Neurology Neurology | DX: G25.0 Essential tremor (principal); G25.2 Other specified forms of tremor | CPT/HCPCS: 99212 ==

== ENCOUNTER 2024-12-10 13:01 | Outpatient (RCR) | payer MEDICARE, MEDICAID, SELFPAY ==
--- NOTE | 2024-11-07 12:26 | MHC.PT.EP ---
[facility] [place] Office [place] Office [place] Office [address] Holden Zhang [address] [phone] F: [phone] F: [phone] F: [phone] F: [phone] Physical Therapy Plan of Care Date of Evaluation: 11/07/24 Date of Surgery: Diagnosis: MONONEUROPATHY, CHRONIC PAIN SYNDROME, CLUNEAL NERVE ENTRAPMENT-> PLEASE PROVIDE PT TO MUSCULAR LOW BACK Assessment: 69 YO FEMALE REF TO PT WITH A DX OF MONONEUROPATHY, CHRONIC PAIN SYNDROME, CLUNEAL NERVE ENTRAPMENT , PROGRESSIVELY x 1 YEAR. SHE HAS Lt THORACO Rt LUMBAR SCOLIOSIS , WHICH HAS CREATED A LLI AND INCR COMPRESSION IN Rt THORCOLUMB REGION. THE Pt HAS CODE CLERK SUPPORT. SHE HAS DECR POSTURE, LIMITED TRUNK/ HIP FLEXIB, DECR CORE STRENGTH, AND (+) TISSUE TENSION IN Rt > Lt LUMBAR PS MM. SHE HAS INTERMITTENT RADIC SXS INTO HER Lt LE. 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 I DISCUSSED POC W Pt AND HER SON AND ALL ARE IN AGREEMENT- THE Pt CHOSE 1 x WK FOR FREQUENCY. Frequency and Duration: The patient will be seen 2 X WK X 4 WKS Short Term Goals: DECR LBP TO 2-3/10 INITIATE HEP W HER CODE CLERK ASSIST INCREASE HIP FLEXIB AND Rt LATERAL TRUNK SIFT TISSUE MOB FURTHER ASSESS Lt HEEL LIFT TRIAL FOR REDUCING SCOLIOTIC INFLUENCE ON LUMBAR AREA AND Rt THORACIC General Forecaster Goals: INDEP HEP AND SELF SX MGMT TECHN Pt DEMON IMPROVED GAIT MECH, ADL CHARAN , AND FUNCTIONAL SQUAT MECH W/O LBP LIMITING HER IMPROVED OSWESTRY (AT EVAL 28/50) Treatment Plan: Modalities to reduce pain, spasms and effusion. Manual therapy to restore motion and function. Therapeutic exercise to improve strength and flexibility. Neuromuscular re-education for posture and balance. Therapeutic activities to return to functional activities of daily living. Electronically signed by: SHILPA CRAIG,PT Please sign and return to therapist. Thank you for your referral.
--- NOTE | 2024-12-10 14:14 | MHC.PT.DC ---
[facility] [place] Office [place] Office [place] Office [address] Holden Zhang [address] [phone] F: [phone] F: [phone] F: [phone] F: [phone] Physical Therapy Discharge Report Diagnosis: MONONEUROPATHY, CHRONIC PAIN SYNDROME, CLUNEAL NERVE ENTRAPMENT-> PLEASE PROVIDE PT TO MUSCULAR LOW BACK Date of Surgery: Date of Evaluation: 11/07/24 Date of Discharge: 12/10/24 Treatments to Date: 4 Cancellations to Date: 3 No Shows to Date: 0 Discharge Status: Achieved Goals Improved Function Independent with HEP Discharge Summary: LAURA HAS PROGRESSED WELL IN PT- SHE PRESENTED TODAY DENYING ANY LBP- SHE DID NOTE SOME Rt KNEE JOINT PAIN DUE TO THE COLD,DAMP WEATHER. LAURA SALVADORON IMPROVED FUNCT MOB CHARAN - MORE EFFICIENT GAIT MECH- SHE HAS A THOROUGH HEP, ADDRESSING PROGRESSIVE STRENGTHENING AND LEs FLEXIBILITY. SHE IS D/C THIS DATE, HAVING MET HER PT GOALS AT THIS TIME. Electronically signed by: SHILPA CRAIG,PT Please sign and return to therapist. Thank you for your referral.
== END 2024-12-10 14:14 | disposition home or self-care (01) ==
LOC: HO.PT 13:01
PROVIDERS: PCP Internal Medicine; Visit Provider Anesthesiology
DX: G89.4 Chronic pain syndrome (principal); M54.50 Low back pain, unspecified; G59 Mononeuropathy in diseases classified elsewhere
CPT/HCPCS: 97110; 97140; 97162; 97530

== ENCOUNTER 2025-05-06 15:45 | Outpatient (AMB) | payer MEDICARE, MEDICAID, SELFPAY ==
--- NOTE | 2025-05-06 15:01 | A.OFFPC_ITS ---
Vital Signs 05/06/25 15:03 05/06/25 16:09 Height 5 ft 4 in Weight 125 lb 4 oz BMI 21.5 BP 140/70 H 138/70 Blood Pressure Location Lt brachial Lt brachial Position Sitting Sitting Pulse 86 Pulse Source Pulse Oximeter Pulse Oximetry (%) 97 Oxygen Delivery Method Room Air Intake Visit Reasons: f/u Health Information Internship Required: No Accompanied by: Self / Same As Patient Allergies ibuprofen (IBUPROFEN) Adverse Reaction (Intermediate, Verified 05/06/25 16:10) BURNING WITH URINATION Medication List - Last Reconciled 05/06/25 by Aubree Pierson MD acetaminophen (Tylenol Extra Strength) 500 mg PO TID PRN 30 days aspirin (Adult Low Dose Aspirin) 81 mg PO DAILY 30 days [Blood pressure monitor As directed] cane As directed, Ht: 5'4 , Wt: 118 lbs cholecalciferol (vitamin D3) 50 mcg PO DAILY 90 days citalopram 10 mg PO DAILY 90 days cyanocobalamin (vitamin B-12) 1,000 mcg PO DAILY 90 days Grab bar As directed Ht: 5'4 , Wt: 118 lbs lisinopril 40 mg PO DAILY loratadine 10 mg PO DAILY PRN 90 days omeprazole 20 mg PO DAILY 90 days propranolol 10 mg PO BID 90 days Shower Chair As directed, Ht: 5'4 , Wt: 118 lbs [toilet seat elevator As directed, Ht: 5'4 , Wt: 118 lbs.] tramadol 50 mg PO Q6H PRN 28 days Tobacco use date assessed: 09/03/24 Fall risk assessment: No Falls in past year Last assessed Fall Risk: 05/06/25 Dental Screening Dental Screen Date: 05/06/25 Did you have a dental visit in the last 12 months?: No Did you have a dental problem in the last 6 months where you did not have access to dental care?: No Was dental information given to patient?: No HPI HPI Comments History of Present Illness Details The patient is a 70-year-old female presenting with management of chronic conditions and preventative care. She has a history of depression with anxiety, for which she is taking citalopram. Her essential hypertension is managed with lisinopril 40 mg daily, and her blood pressure is currently well- controlled. The patient experiences osteoarthritis in her knees, for which she uses tramadol for pain management. She reports an allergic reaction to ibuprofen, which causes a burning sensation during urination. She also has a history of tremors, managed with propranolol, and is followed by neurology for this condition. Additionally, she takes omeprazole for gastroesophageal reflux disease. Preventative care measures include a colon cancer screening with a stool test, as her last colonoscopy in 2007 was normal. [facility] Medical History Essential and other specified forms of tremor Neck pain Hair loss Seasonal allergic rhinitis due to pollen Nausea B12 deficiency Anxiety Knee osteoarthritis GERD (gastroesophageal reflux disease) Essential hypertension Surgical History History of section Family History Father CVD (cardiovascular disease) Stroke Mother Hypertension Paternal Grandfather Medical history unknown Paternal Uncle Stroke Cancer Social History Housing: Apartment Alcohol intake: never Patient Tobacco Use Status: Never used Tobacco e-Cigarette/Vaping Use: Never Used Second Hand Smoke Exposure: No service: No Current occupational status: disabled Cognitive needs: Yes Hearing needs: No Vision needs: No Questionnaire PHQ-9 Over the last 2 weeks, how often have you been bothered by any of the following problems? 1. Little interest or pleasure in doing things: not at all 2. Feeling down, depressed, or hopeless: not at all 3. Trouble falling or staying asleep, or sleeping too much: not at all 4. Feeling tired or having little energy: not at all 5. Poor appetite or overeating: not at all 6. Feeling bad about yourself - or that you are a failure or have let yourself or your family down: not at all 7. Trouble concentrating on things, such as reading the newspaper or watching television: not at all 8. Moving or speaking so slowly that other people could have noticed. Or the opposite - being so fidgety or restless that you have been moving around a lot more than usual: not at all 9. Thoughts that you would be better off or of hurting yourself in some way : not at all Total score: 0 Depression Screening Interpretation: Negative Depression Screening Done: Yes 70946 - PHQ-9 Billing: Yes Source: Developed by Drs. Dell Tariq, Edin Cano and colleagues, with an educational ron from [employer]. Thrive Questionnaire Date Thrive assessed: 05/06/25 I am a: Patient What is your living situation today?: I have a steady place to live Within the past 12 months, did the food you bought not last and you didn't have the money to get more?: Never true Within the past 12 months, did you worry whether your food would run out before you got money to buy more?: Never true Do you have trouble paying for medicines?: Yes Do you have trouble getting transportation to medical appointments?: No Do you have trouble paying your heating and electricity bill?: Yes Do you have trouble taking care of your child, family member or friend?: No Do you have trouble with day-to-day activities such as bathing, preparing meals, shopping, managing finances, etc.?: Yes Are you currently unemployed and looking for a job?: No Are you interested in more education?: No Please select the resources that you would like help with: None THRIVE Score: 1 AUDIT C Alcohol Use Questionnaire (AUDIT-C) 1. How often do you have a drink containing alcohol?: Never Total Score: 0 Score Reviewed/Action Taken: No DEANGELO-7 AMB Questionnaire DEANGELO-7 Date DEANGELO - 7 assessed: 05/06/25 Feeling nervous, anxious, or on edge: 1 = Several days Not being able to stop or control worryin = Not at all Worrying too much about different things: 1 = Several days Trouble relaxin = Not at all Being so restless that it is hard to sit still: 0 = Not at all Becoming easily annoyed or irritable: 0 = Not at all Feeling afraid as if something awful might happen: 1 = Several days Total DEANGELO-7 score (0-4 normal; 5-9 mild; 10-14 moderate; 15-21 severe): 3 Source: Developed by Drs. Dell Tariq, Edin Cano and colleagues, with an educational ron from [employer]. DEANGELO-7 Assessment Billing DEANGELO-7 Assessment Tool: DEANGELO-7 Assessment 28263 Review of Systems Const All systems reviewed & are unremarkable except as noted in HPI and below Card Denies chest pain at rest, Denies chest pain with activity, Denies edema, Denies irregular heart rhythm, Denies claudication, Denies dyspnea, Denies dyspnea on exertion, Denies orthopnea, Denies paroxysmal nocturnal dyspnea and Denies slow heart rate Resp Denies cough, Denies dyspnea and Denies dyspnea on exertion Physical exam (Primary Care) Vital Signs: Last Vital Signs Pulse 86 05/06/25 15:03 BP 138/70 05/06/25 16:09 Pulse Ox 97 05/06/25 15:03 Oxygen Delivery Method Room Air 05/06/25 15:03 BMI result Body Mass Index 21.5 Tobacco/Smoking Status: Tobacco use Status Tobacco use date assessed 09/03/24 05/06/25 15:06 Patient Tobacco Use Status Never used Tobacco 05/06/25 15:06 e-Cigarette/Vaping Use Never Used 05/06/25 15:06 PHQ-9: PHQ-9 Score PHQ-9: Total score 0 05/06/25 16:13 Depression Screening Interpretation: Negative Thrive Assessment: Date of Thrive Assessment Date Thrive assessed 05/06/25 05/06/25 15:06 Resp Effort & Inspection: normal respiratory effort Auscultation: clear to auscultation bilaterally Cardio Jugular venous distension: no JVD Rate: regular rate Rhythm: regular rhythm Heart sounds: S1 normal heart sound present and S2 normal heart sound present Extrem General: Yes full ROM Coding Level of Care Code Est Pt Level 4 (69289) Complex EM visit Add On G2211 Diagnoses Mild recurrent major depression F33.0 Anxiety F41.9 Essential hypertension I10 Gastroesophageal reflux disease, unspecified whether esophagitis present K21.9 Esophagitis presence: esophagitis presence not specified Primary osteoarthritis of both knees M17.0 Osteoarthritis type: primary Laterality: bilateral Tremors of nervous system R25.1 Additional Codes DEANGELO-7 Assessment Billing - DEANGELO-7 Assessment Tool: DEANGELO-7 Assessment 75312 ([id number]) PHQ-9 - 77674 - PHQ-9 Billing: Yes ([id number]) Time Spent (min) 23 Assessment & Plan Assessment & Plan (1) Mild recurrent major depression: Code(s): F33.0 - Major depressive disorder, recurrent, mild Category: Medical (2) Anxiety: Code(s): F41.9 - Anxiety disorder, unspecified Category: Medical (3) Essential hypertension: Code(s): I10 - Essential (primary) hypertension Category: Medical (4) GERD (gastroesophageal reflux disease): Code(s): K21.9 - Gastro-esophageal reflux disease without esophagitis Category: Medical Qualifiers: Esophagitis presence: esophagitis presence not specified Qualified Code(s): K21.9 - Gastro-esophageal reflux disease without esophagitis (5) Knee osteoarthritis: Code(s): M17.10 - Unilateral primary osteoarthritis, unspecified knee Category: Medical Qualifiers: Osteoarthritis type: primary Laterality: bilateral Qualified Code(s): M17.0 - Bilateral primary osteoarthritis of knee (6) Tremors of nervous system: Code(s): R25.1 - Tremor, unspecified Category: Medical Plan Plan Patient was informed and verbally consented to the use of an ambient scribe for clinic note documentation during this visit. 1. Major depressive disorder, recurrent, mild F33.0 HCC 59 The patient continues on citalopram for management of depression with anxiety. 2. Essential (primary) hypertension I10 Blood pressure is well-controlled with lisinopril 40 mg daily. 3. Bilateral primary osteoarthritis of knee M17.0 The patient uses tramadol for pain management of osteoarthritis in the knees. 4. Tremor, unspecified R25.1 Tremors are managed with propranolol, and the patient is followed by neurology. 5. Gastro-esophageal reflux disease without esophagitis K21.9 The patient takes omeprazole for management of gastroesophageal reflux disease. 6. Anxiety disorder, unspecified F41.9 Continue citalopram Orders: Orders Lipid Panel Today E78.5 - Hyperlipidemia, unspecified, I10 - Essential (primary) hypertension Comprehensive [place]. Panel Fast Today I10 - Essential (primary) hypertension Vitamin D 25-OH Total Today E55.9 - Vitamin D deficiency, unspecified Vitamin B12 and Folate Today E53.8 - Deficiency of other specified B group vitamins Referrals Cologuard Test Z12.11 - Encounter for screening for malignant neoplasm of colon, Z12.12 - Encounter for screening for malignant neoplasm of rectum Medications: Refilled loratadine 10 mg PO DAILY PRN 90 tabs 1RF allergy symptoms 90 days I10 - Essential (primary) hypertension cyanocobalamin (vitamin B-12) 1,000 mcg PO DAILY 90 tabs 1RF 90 days I10 - Essential (primary) hypertension cholecalciferol (vitamin D3) 50 mcg PO DAILY 90 caps 1RF 90 days I10 - Essential (primary) hypertension
[2025-05-06 15:03] VITALS: BP 140/70; PULSE 86; O2SAT 97; BMI 21.5
[2025-05-06 16:09] VITALS: BP 138/70
--- OUTSIDE RECORDS SUMMARY | 2025-05-06 18:31 | XMS_ITS | Clinical Summary ---
Author Organization [facility] Address [address] [address] Phone Care Team Providers Care Special Education Resource Teacher Name Role Phone Pcp, Unknown Primary Care Provider Unavailabl e Allergies No known active allergies Medications aspirin 81 MG EC tablet TOME 1 TABLETA POR V A ORAL TODOS LOS D 5 Active citalopram (CELEXA) 10 MG tablet Take 1 tablet by mouth every morning. 5 Active cyanocobalamin, vitamin B-12, 1000 MCG tablet TOME 1 TABLETA POR V A ORAL TODOS LOS D 5 Active lisinopril (PRINIVIL,ZESTR IL) 40 MG tablet TOME 1 TABLETA POR V A ORAL TODOS LOS D 5 Active omeprazole (PRILOSEC) 20 MG capsule TOME 1 C PSULA POR V A ORAL TODOS LOS D 5 Active traMADoL (ULTRAM) 50 mg tablet PRN 5 Active diclofenac sodium (VOLTAREN) 1 % Gel Apply 4 g topically 4 (four) times a day. 150 g 5 Active Encounters Date Type Department Care Team Description 04/09/2025 3:36 PM EDT - 04/09/2025 11:59 PM EDT Hospital Encounter [facility], X-Ray - [address] [address] Juana Quiroz NP Discharge Disposition: Home or Self Care 04/09/2025 2:40 PM EDT Office Visit [facility] at [address] [address] Juana Quiroz NP Left foot pain (Primary Dx); Foot sprain, left, initial encounter from Last 3 Months Social History Tobacco Use Types Packs/Day Years Used Date Smoking Tobacco: Never Assessed Education Answer Date Recorded Are you interested in more education? Not on candida e 04/09/2025 Are you concerned about learning? Not on file 04/09/2025 No 04/09/2025 No 04/09/2025 Digital Access Answer Date Recorded No 04/09/2025 No 04/09/2025 Reliable internet access at home? Not on file 04/09/2025 Device with a working camera? Not on file Comments Unknown Sex and Gender Information Value Date Recorded Sex Assigned at Not on file Legal Sex Female 2:06 PM EDT Gender Identity Not on file Sexual Orientation Not on file Last Filed Vital Signs Vital Sign Reading Time Taken Comments Blood Pressure 127/80 04/09/2025 2:18 PM EDT Pulse 82 04/09/2025 2:18 PM EDT Temperature 36.8 C (98.2 F) 04/09/2025 2:18 PM EDT Respiratory Rate 18 04/09/2025 2:18 PM EDT Oxygen Saturation 98% 04/09/2025 2:18 PM EDT Inhaled Oxygen Concentration - - Weight 59 kg (130 lb) 04/09/2025 2:18 PM EDT Height 157.5 cm (5' 2 ) 04/09/2025 2:18 PM EDT Body Mass Index 23.78 04/09/2025 2:18 PM EDT Plan of Treatment Health Maintenance Due Date Last Done Comments CREATININE LEVEL 1954 LIPID PANEL 1954 POTASSIUM LEVEL 1954 DEPRESSION SCREENING 1966 SMOKING Hx and SMOKELESS TOBACCO SCREENING 1967 HEPATITIS C SCREENING 1972 MAMMOGRAM 1994 COLOGUARD 1999 COLONOSCOPY 1999 COLORECTAL CANCER SCREENING 1999 FIT TEST 1999 FOBT 1999 SIGMOIDOSCOPY 1999 VIRTUAL COLONOSCOPY 1999 ZOSTER VACCINES (1 of 2) 2004 OSTEOPOROSIS SCREENING INITI AL (ONE-TIME) 2019 Adult Td,Tdap Booster 06/20/2020 06/20/2010 , 02/25/1998 INFLUENZA VACCINE (#1) 2025 COVID-19 VACCINE (4 - 2023-2 5 season) 2025 04/29/2024, 09/20/2021, 08/09/2021 RSV VACCINE (1 - 1-dose 75+ series) 2029 PNEUMOCOCCAL VACCINES (50+ years) Completed 04/03/2024 HEPATITIS A VACCINES Aged Out No long er eligible based on patient's age to complete this topic HIB VACCINES Aged Out No longer eligi ble based on patient's age to complete this topic MENINGOCOCCAL VACCINES (ACWY) Aged Out No longer eligible based on patient's age to complete this topic MENINGOCOCCAL VACCINES (B) Aged Out N o longer eligible based on patient's age to complete this topic Medical Devices Not on file Procedures Procedure Name Priority Date/Time Associated Diagnosis Comments SEDIMENTATION RATE (ESR) Routine 04/09/2025 4:01 PM EDT Left foot pain URIC ACID Routine 04/09/2025 4:01 PM EDT Left foot pain CBC AND DIFFERENTIAL Routine 04/09/2025 4:01 PM EDT Left foot pain XR FOOT 3 OR MORE VIEWS (LEFT) Urgent/patient waiting 04/09/2025 3:45 PM EDT Left foot pain from Last 3 Months Results * Sedimentation rate (ESR) (04/09/2025 4:01 PM EDT) ESR 17 0 - 30 mm/h [facility] Blood 04/09/2025 4:01 PM EDT 04/09/2025 4:49 PM EDT us Juana Quiroz NP LAB BLOOD ORDERABLES Final Result [facility] [address] [place] [address] * (ABNORMAL) CBC and differential (04/09/2025 4:01 PM EDT) WBC 11.79(H) 4.00 - 11.00 K/uL [facility] RBC 4.07 4.00 - 5.20 M/uL [facility] HGB 12.4 12.0 - 16.0 g/dL [facility] HCT 37.8 36.0 - 46.0 % [facility] PLT 235 150 - 450 K/uL [facility] MCV 92.9 80.0 - 100.0 fL [facility] MCH 30.5 27.0 - 31.0 pg [facility] MCHC 32.8 32.0 - 36.0 g/dL [facility] RDW 11.9 11.5 - 14.5 % [facility] MPV 11.3 8.4 - 12.0 fL [facility] NRBC 0.00 0.00 /100 WBCs [facility] ABSOLUTE NRBC 0.00 0.00 K/uL [facility] DIFF METHOD Auto [facility] NEUTS 80.9(H) 48.0 - 76.0 % [facility] LYMPHS 12.5(L) 18.0 - 41.0 % [facility] MONOS 6.1 4.0 - 11.0 % [facility] EOS 0.0 0.0 - 5.0 % [facility] BASOS 0.3 0.0 - 1.5 % [facility] Granulocytes, immature (%) 0.2 0.0 - 0.9 % [facility] ABSOLUTE NEUTS 9.54(H) 1.92 - 7.60 K/uL [facility] ABSOLUTE LYMPHS 1.47 0.72 - 4.10 K/uL [facility] ABSOLUTE MONOS 0.72 0.16 - 1.10 K/uL [facility] ABSOLUTE EOS 0.00 0.00 - 0.50 K/uL [facility] ABSOLUTE BASOS 0.04 0.00 - 0.15 K/uL [facility] Granulocytes, immature 0.02 0.00 - 0.09 K/uL [facility] Blood 04/09/2025 4:01 PM EDT 04/09/2025 4:49 PM EDT Juana Quiroz NP LAB BLOOD ORDERABLES Final Result [address] [address] * Uric acid (04/09/2025 4:01 PM EDT) URIC ACID 3.4 2.4 - 7.0 mg/dL [facility] Blood 04/09/2025 4:01 PM EDT 04/09/2025 4:49 PM EDT us Juana Quiroz SURVEY INTERVIEWER LAB BLOOD ORDERABLES Final Result Performing Organization Address [facility]/ZIP Co de Phone Number [address] [address] * XR FOOT 3 OR MORE VIEWS (LEFT) (04/09/2025 3:45 PM EDT) Anatomical Region Laterality Modality Foot Left Computed Radiogr aphy 04/09/2025 3:56 PM EDT Impressions 04/09/2025 3:57 PM EDT No acute fracture or dislocation. Mild degenerative changes of the 1st metatarsophalangeal joint. Mild soft tissue swelling along the forefoot and toes. Plantar calcaneal enthesophyte. Narrative 04/09/2025 3:57 PM EDT XR FOOT 3 OR MORE VIEWS (LEFT) Referring clinician's provided indication for this examination in Epic: Pain COMPARISON: None. Procedure Note Damián Harp MD - 04/09/2025 XR FOOT 3 OR MORE VIEWS (LEFT) Referring clinician's provided indication for this examination in [facility]:Pain COMPARISON: None. IMPRESSION: No acute fracture or dislocation. Mild degenerative changes of the 1stmetatarsophalangeal joint. Mild soft tissue swelling along the forefootand toes. Plantar calcaneal enthesophyte. us Juana Quiroz SURVEY INTERVIEWER IMG XR LOWER EXTREMITY Fin al Result from Last 3 Months Insurance [place] [id number] [place] [id number] [place] [id number] [place] [address] MEDICARE REPLACEMENT Member Subscriber Plan / Payer (Ef fective 2024-Present) Name:Ricarda Dillard Relation to Subscriber:Self Name:Ricarda Dillard Payer ID:[id number] (NAIC) Type:Medicare Address: [place] [id number] [place] [address] [place] [place] [address] MEDICARE REPLACEMENT Member Subscriber Plan / Payer (Ef fective 2024-Present) Name:Ricarda Dillard Relation to Subscriber:Self Name:Ricarda Dillard Payer ID:[id number] (NAIC) Type:Medicare Address: [place] [id number] Care Teams Special Education Resource Teacher Relationship Specialty Start Date End Date Pcp, Unknown PCP - General 04/09/25 Additional Source Comments The information contained in this document represents components of the legal health record. It is not the complete legal health record.[facility]
== END 2025-05-06 16:20 | disposition home or self-care (01) ==
LOC: HO.HMCH 15:46
PROVIDERS: PCP Internal Medicine; Visit Provider Internal Medicine
DX: F33.0 Major depressive disorder, recurrent, mild (principal); F41.9 Anxiety disorder, unspecified; I10 Essential (primary) hypertension; K21.9 Gastro-esophageal reflux disease without esophagitis; M17.0 Bilateral primary osteoarthritis of knee; R25.1 Tremor, unspecified

== ENCOUNTER → 2025-05-06 15:45 | Outpatient (BNVA) | payer MEDICARE, MEDICAID, SELFPAY | PROVIDERS: PCP Internal Medicine; Visit Provider Internal Medicine | DX: F33.0 Major depressive disorder, recurrent, mild (principal); F41.9 Anxiety disorder, unspecified; I10 Essential (primary) hypertension; K21.9 Gastro-esophageal reflux disease without esophagitis; M17.0 Bilateral primary osteoarthritis of knee; R25.1 Tremor, unspecified | CPT/HCPCS: 96127; 99212 ==

== ENCOUNTER 2025-05-21 13:08 | Outpatient (AMB) | payer MEDICARE, MEDICAID, SELFPAY ==
--- NOTE | 2025-05-21 13:08 | MHC.OFFVIS ---
Vital Signs 05/21/25 13:09 Height 5 ft 4 in Weight 126 lb BMI 21.6 BP 142/82 H Blood Pressure Location Rt brachial Position Sitting Pulse 61 Pulse Source Pulse Oximeter Pulse Oximetry (%) 97 Oxygen Delivery Method Room Air Intake Visit Reasons: Follow up Tremors Intake Note: Follow up Essential and other specified forms of tremor Compound Specialist Required: Yes Compound Specialist Services: Compound Specialist Offered & Declined Compound Specialist Name: Niece - Amelia - to interpret Allergies ibuprofen (IBUPROFEN) Adverse Reaction (Intermediate, Verified 05/21/25 13:09) BURNING WITH URINATION HPI Comments Details: 70y/o female comes for follow up. of tremors The tremors are better with [id number] and after she did OT. she denies any side effects form propranolol History from initial visit-The tremors are in her hands for past 20 years but for the past 3 years it has worsened and she is noticing difficulty with hand coordination. she has trouble dressing, holding things in her hand , showering, drinking eating etc It used to be with action only but now she has it at rest. she is right handed .she recently had left wrist fracture .No neck or head tremors. The tremors are worse when she is anxious and stressed. no family h/o tremors No h/o exposure to neuroleptics.No exposure to reglan. No h/o head injury No memory issues or sleep issues she has neck pain PFSH Medical History Essential and other specified forms of tremor Neck pain Hair loss Seasonal allergic rhinitis due to pollen Nausea B12 deficiency Anxiety Knee osteoarthritis GERD (gastroesophageal reflux disease) Essential hypertension Surgical History History of section Family History Father CVD (cardiovascular disease) Stroke Mother Hypertension Paternal Grandfather Medical history unknown Paternal Uncle Stroke Cancer Social History Housing: Apartment Alcohol intake: never Patient Tobacco Use Status: Never used Tobacco e-Cigarette/Vaping Use: Never Used Second Hand Smoke Exposure: No service: No Current occupational status: disabled Cognitive needs: Yes Hearing needs: No Vision needs: No Physical Exam Vital Signs: Last Vital Signs Pulse 61 05/21/25 13:09 BP 142/82 H 05/21/25 13:09 Pulse Ox 97 05/21/25 13:09 Oxygen Delivery Method Room Air 05/21/25 13:09 BMI result Body Mass Index 21.6 Const General: cooperative, healthy appearing, comfortable and no acute distress Nutritional Appearance: average body habitus Orientation/consciousness: patient oriented x3 Eyes Pupils: Equal, round and reactive pupils present Neck Neck: Yes no meningeal signs Neuro Other: Lencho UE postural tremors- mild ACtion tremors - worse with writing and archimedes spiral General: patient oriented x3, tone normal, moves all extremities, no meningeal signs and no focal motor deficits Cranial nerves: Yes Facial sensation intact/muscles of mastication intact, Yes Equal, round and reactive pupils present, Yes Bilaterally intact EOM present, Yes Nystagmus not present, Yes Normal facial strength present, Yes Midline tongue present and Yes Symmetric palate elevation present Cognition (Neuro): normal cognition Gait exam (Neuro): Normal gait present Motor exam (neuro): 5/5 motor strength present throughout and Normal motor muscle tone present throughout Coordination: [id number] test normal Assessment & Plan Assessment & Plan (1) Essential and other specified forms of tremor: Code(s): G25.0 - Essential tremor; G25.2 - Other specified forms of tremor Category: Medical Plan Restart propranolol 10mg bid for tremors- can use an extra tablet as needed Continue hand exercises Medications: Refilled propranolol 10 mg PO BID 180 tabs 6RF 90 days Coding Level of Care Code Est Pt Level 4 (50722) Complex EM visit Add On G2211 Diagnoses Essential and other specified forms of tremor G25.0; G25.2
[2025-05-21 13:09] VITALS: BP 142/82; PULSE 61; O2SAT 97; BMI 21.6
--- OUTSIDE RECORDS SUMMARY | 2025-05-21 17:51 | XMS_ITS | Clinical Summary ---
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 Name Role Phone Pcp, Unknown Primary Care [...] - 04/09/2025 11:59 PM EDT Hospital Encounter [facility], X-Ray - [address] [address] Juana Quiroz NP Discharge Disposition: Home or Self Care 04/09/2025 2:40 PM EDT Office Visit [facility] at [address] [address] Juana Quiroz NP Left foot pain (Primary [...] EDT) ESR 17 0 - 30 mm/h [facility] Blood 04/09/2025 4:01 PM EDT 04/09/2025 4:49 PM EDT us Juana Quiroz NP LAB BLOOD ORDERABLES Final Result [facility] [address] [place] [address] * (ABNORMAL) CBC and differential (04/09/2025 4:01 PM EDT) WBC 11.79(H) 4.00 - 11.00 K/uL [facility] RBC 4.07 4.00 - 5.20 M/uL [facility] HGB 12.4 12.0 - 16.0 g/dL [facility] HCT 37.8 36.0 - 46.0 % [facility] PLT 235 150 - 450 K/uL [facility] MCV 92.9 80.0 - 100.0 fL [facility] MCH 30.5 27.0 - 31.0 pg [facility] MCHC 32.8 32.0 - 36.0 g/dL [facility] RDW 11.9 11.5 - 14.5 % [facility] MPV 11.3 8.4 - 12.0 fL [facility] NRBC 0.00 0.00 /100 WBCs [facility] ABSOLUTE NRBC 0.00 0.00 K/uL [facility] DIFF METHOD Auto [facility] NEUTS 80.9(H) 48.0 - 76.0 % [facility] LYMPHS 12.5(L) 18.0 - 41.0 % [facility] MONOS 6.1 4.0 - 11.0 % [facility] EOS 0.0 0.0 - 5.0 % [facility] BASOS 0.3 0.0 - 1.5 % [facility] Granulocytes, immature (%) 0.2 0.0 - 0.9 % [facility] ABSOLUTE NEUTS 9.54(H) 1.92 - 7.60 K/uL [facility] ABSOLUTE LYMPHS 1.47 0.72 - 4.10 K/uL [facility] ABSOLUTE MONOS 0.72 0.16 - 1.10 K/uL [facility] ABSOLUTE EOS 0.00 0.00 - 0.50 K/uL [facility] ABSOLUTE BASOS 0.04 0.00 - 0.15 K/uL [facility] Granulocytes, immature 0.02 0.00 - 0.09 K/uL [facility] Blood 04/09/2025 4:01 PM EDT 04/09/2025 4:49 PM EDT Juana Quiroz NP LAB BLOOD ORDERABLES Final Result [address] [address] * Uric acid (04/09/2025 4:01 PM EDT) URIC ACID 3.4 2.4 - 7.0 mg/dL [facility] Blood 04/09/2025 4:01 PM EDT 04/09/2025 4:49 PM EDT us Juana Quiroz [employer]BI[employer] HOME INSTALLER LAB BLOOD ORDERABLES Final Result Performing Organization Address [facility]/ZIP Co de Phone Number [address] [address] * XR FOOT 3 OR MORE VIEWS [...] clinician's provided indication for this examination in [facility]:Pain COMPARISON: None. IMPRESSION: No acute fracture or dislocation. Mild degenerative changes of the 1stmetatarsophalangeal joint. Mild soft tissue swelling along the forefootand toes. Plantar calcaneal enthesophyte. us Juana Quiroz [employer]BI[employer] HOME INSTALLER IMG XR LOWER EXTREMITY Fin al Result from Last 3 Months Insurance [place] [id number] [place] [id number] [place] [id number] [place] [address] MEDICARE REPLACEMENT Member Subscriber Plan / Payer (Ef fective 2024-Present) Name:Ricarda Dillard Relation to Subscriber:Self Name:Ricarda Dillard Payer ID:[id number] (NAIC) Type:Medicare Address: [place] [phone] [place] [address] [place] [address] MEDICARE REPLACEMENT Member Subscriber Plan / Payer (Ef fective 2024-Present) Name:Ricarda Dillard Relation to Subscriber:Self Name:Ricarda Dillard Payer ID:[id number] (NAIC) Type:Medicare Address: [place] [phone] 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 It is not the complete legal health record.[facility]
== END 2025-05-21 13:34 | disposition home or self-care (01) ==
LOC: HO.HSMS 13:09
PROVIDERS: PCP Internal Medicine; Visit Provider Psychiatry & Neurology Neurology
DX: G25.0 Essential tremor (principal); G25.2 Other specified forms of tremor
CPT/HCPCS: 99214; G2211

== ENCOUNTER → 2025-05-21 13:08 | Outpatient (BNVA) | payer MEDICARE, MEDICAID, SELFPAY | PROVIDERS: PCP Internal Medicine; Visit Provider Psychiatry & Neurology Neurology | DX: G25.0 Essential tremor (principal); G25.2 Other specified forms of tremor | CPT/HCPCS: 99212 ==